=== PATIENT | female | born 1960 | race Caucasian/White ===

== ENCOUNTER 2020-02-09 10:22 | Outpatient (CLI) | payer BC, SELFPAY ==
--- NOTE | ~2020-02-09 | CT_ITS ---
EXAMINATION: CT abdomen pelvis w con DATE: 02/09/2020 11:04 INDICATION: Left lower quadrant abdominal pain TECHNIQUE: Computed tomography (CT) of the abdomen and pelvis was performed with 100 cc Omnipaque 350 intravenous contrast. Automated exposure control and iterative reconstruction technique were employe d. Exam dose: 253.20 mGy-cm total exam DLP. COMPARISON: None. FINDINGS: There is mild discoid atelectasis or scarring at the posteromedial left lung base, left low er lobe. There is minimal bilateral lower lobe dependent atelectasis. Normal heart size. No pericardial or pleural effusion. Hepatic steatosis. The liver, gallbladder, bile ducts, spleen, pancreas, pancreatic duct, and adrenal glands and kidneys are otherwise unremarkable. A pinpoint nonobstructing mid left renal calculus is suggested. No ureteral or urinary bladder calculus or hydroureteronephrosis. There is atherosclerotic calcification of the abdominal aorta and iliac arteries; no evidence of aneu rysm. No intraperitoneal or retroperitoneal or pelvic mass lesion or adenopathy or ascites. Normal appendix. There is diverticulosis of the colon. There is thickening of the wall of the proximal sigmoid colon w ith pericolic stranding, likely secondary to diverticulitis. No drainable abscess collection is ident ified. No free intraperitoneal air is noted. No bowel obstruction, bowel wall thickening, pneumatosis or intraperitoneal free air is noted otherwi se. Status post hysterectomy. Status post posterior and interbody spinal fusion at L5-S1. IMPRESSION: Sigmoid diverticulitis; no drainable abscess identified Diverticulosis of the colon Pinpoint nonobstructing left renal calculus Hepatic steatosis Dr. Mendez telephoned the report on 02/09/2020 at 1118 hours to Bessie Carreno. Reviewed, dictated and finalized at [facility]. Reviewed, dictated and finalized at [facility]. IMPRESSION: Sigmoid diverticulitis; no drainable abscess identified Diverticulosis of the colon Pinpoint nonobstructing left renal calculus Hepatic steatosis Dr. Mendez telephoned the report on 02/09/2020 at 1118 hours to Bessie Ruiz
[2020-02-09 10:53] LABS: Estimated Glomerular Filt Rate > 60
== END 2020-02-09 10:23 | disposition home or self-care (01) ==
LOC: ANHIMG 10:26
PROVIDERS: PCP Internal Medicine; Visit Provider Nurse Practitioner
DX: R10.32 Left lower quadrant pain (principal); K57.92 Diverticulitis of intestine, part unspecified, without perforation or abscess without bleeding; N20.0 Calculus of kidney; K76.0 Fatty (change of) liver, not elsewhere classified
CPT/HCPCS: 36415; 74177; Q9967

== ENCOUNTER 2020-05-02 08:13 | Outpatient (CLI) | payer BC, SELFPAY ==
--- NOTE | 2020-05-12 15:17 | WPDPFTINT ---
PFT Interpretation PFT Interpretation: This PFT met all criteria for ATS standards and reproducibility FEV/FVC post bronchodilator 80% FEV1 138% FVC 128% TLC 122% RV 109% RV/TLC 33% DLCO 84% when adjusted for alveolar volume but not adjusted for hemoglobin Flow volume loops were normal Impression: Other than borderline hyperinflation this PFT is normal. Clinical correlation is advised.
== END 2020-05-02 08:14 | disposition home or self-care (01) ==
PROVIDERS: PCP Internal Medicine; Visit Provider Clinical Nurse Specialist
DX: Z83.6 Family history of other diseases of the respiratory system (principal)
CPT/HCPCS: 94060; 94726; 94729

== ENCOUNTER → 2021-01-24 10:37 | Outpatient (CLI) | payer BC, SELFPAY ==
--- NOTE | ~2021-01-24 | XR_ITS ---
EXAMINATION: XR foot LT min 3V EXAM DATE: 01/24/2021 11:17 INDICATION: Initial encounter following injury, with pain of the left foot, jammed into stair 2-3 wee ks ago. Persistent pain and swelling dorsally between 1st and 2nd metatarsal bones. TECHNIQUE: Left foot dorsoplantar, lateral and oblique projections obtained and reviewed. There is n o prior study for comparison. FINDINGS: Left metatarsal bones unremarkable. There is minimal 1st metatarsophalangeal joint primar y osteoarthritis. There are no acute fractures or dislocations identified. There is no subcutaneous gas. The soft tissue is unremarkable. There are no radiopaque foreign bodies. IMPRESSION: No acute osseous findings. Reviewed, dictated and finalized at location [facility]. IMPRESSION: No acute osseous findings.
== END ==
PROVIDERS: PCP Internal Medicine; Visit Provider Nurse Practitioner
DX: M19.072 Primary osteoarthritis, left ankle and foot (principal)
CPT/HCPCS: 73630

== ENCOUNTER 2022-05-20 01:26 | Day surgery (SDC) | payer BC, SELFPAY ==
[2022-05-19 09:21] VITALS: BMI 23.9
--- NOTE | 2022-05-19 09:27 | PC.NURSE ---
Report to the Outpatient Waiting Room, entrance under the green pavilion located off [facility], at time 0830 on date 05/20/22. Planned Procedure Time: 1030. Time changes happen often and if your time is changed the preop area will call you the afternoon before. - You and your visitor will be asked to self-screen and do not enter if you have any COVID symptoms. - Only one visitor is requested with a max of two and NO children visitors are allowed at this time. - The patient visitor may be requested to leave or wait in car when not with patient due to distancing restrictions. - A mask is optional within the hospital. Patients may have clear liquids (water, carbonated beverages, clear teas, apple juice) until 3 hours prior to surgery with a maximum of 20 ounces. - No food from midnight until time of surgery Take the following medications with a SIP of water the morning of surgery: LEVOTHYROXINE, VALACYCLOVIR & MACROBID IF NEEDED Medications to discontinue per physician: VITAMINS/SUPPLEMENTS Date to take last dose: NO MORE UNTIL AFTER SURGERY Please no make-up, nail danish, hairspray, perfume, deodorant, or body powder the day of surgery. No jewelry (including any body piercings) or valuables the day of surgery, leave them at home. Please take a shower or bath the night before, or the morning of, surgery with an antibacterial soap. Wear comfortable, loose fitting clothing. - Jewelry must be removed prior to entering the operating room. Rings and piercings that are not removed may be cut off. - The hospital will not accept responsibility for valuables. - Please leave all valuables, including medications, at home the day of surgery. If you are going home after surgery, a licensed catshovel driver must drive you home. - NO public transportation without another adult if you receive anesthesia. - We recommend that an adult stay with you for 24 hours following discharge. - We also recommend that you do not drive, make important decision, drink alcoholic beverages, or take any drugs that were not prescribed by your health care provider for at least 24 hours after your discharge time. Follow any additional instructions given to you from your surgeon. If you or anyone in your household have experienced Covid symptoms in the past week, please notify your surgeon or the nurse liaison at the phone number below for possible testing. Telephone instructions given to PT Ruthy DSOUZA and asked if any additional questions and then verbalized understanding. Patient advised to call surgeon office or pre surgery nurse liaison [phone] if any additional questions.
--- NOTE | 2022-05-19 14:50 | WPDANESEPPF ---
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 Patient Data Age: 61 Gender: F Height: 1.6 m Weight: 61.24 kg Allergies Allergy/AdvReac Type Severity Reaction Status Date / Time hydrocodone [From Vicodin] AdvReac Mild Nausea and Verified 05/20/22 07:56 Vomiting Home Medications Medication Instructions Recorded Confirmed Type blood-glucose meter,continuous #1 ea 11/04/20 05/20/22 Rx (Dexcom G6 [employer] misc) cetirizine 10 mg tablet (Zyrtec) 10 mg PO DAILY #90 tabs 07/14/21 05/20/22 Rx omega-3 fatty acids 1,000 mg 2,000 mg PO DAILY 08/06/21 05/20/22 History capsule fluticasone propionate 50 1 spray intranasal Q12H #54.6 mL 10/01/21 05/20/22 Rx mcg/actuation nasal spray,suspension atorvastatin 20 mg tablet 20 mg PO DAILY #90 tabs 10/22/21 05/20/22 Rx estradiol 0.025 mg/24 hr weekly 1 patch transdermal WEEKLY #12 ea 11/12/21 05/20/22 Rx transdermal patch nitrofurantoin 100 mg PO ONCE PRN postcoidal UTI 11/13/21 05/20/22 History monohydrate/macrocrystals 100 mg prophylaxis capsule (Macrobid) blood-glucose sensor (Dexcom G6 #9 ea 12/16/21 05/20/22 Rx Sensor device) blood-glucose transmitter (Dexcom #3 ea 02/19/22 05/20/22 Rx G6 Transmitter device) losartan 100 mg tablet 100 mg PO DAILY #90 tabs 03/09/22 05/20/22 Rx valacyclovir 1 gram tablet See Rx Instructions .Route 03/09/22 05/20/22 Rx .COMPLEX #90 tabs doxepin 10 mg capsule See Rx Instructions .Route 03/10/22 05/20/22 Rx .COMPLEX #180 caps semaglutide 1 mg/dose (4 mg/3 mL) 1 mg (0.75 mL) subcut WEEKLY 90 05/11/22 05/20/22 Rx subcutaneous pen injector (Ozempic) days #9 mL levothyroxine 50 mcg tablet See Rx Instructions .Route 05/19/22 05/20/22 Rx .COMPLEX #90 tabs Patient hx anesthesia problems: none Family hx anesthesia problems: none Results Review: All pre-operative results and documents have been reviewed as part of the pre-operative evaluation. [facility] Past Medical History Medical History Acquired hypothyroidism Chicken pox Diverticulitis large intestine Family history of pulmonary fibrosis Herniated disc Hypertension Insomnia LBBB (left bundle branch block) Lumbar radiculitis Mixed hyperlipidemia Postcoital UTI PVC (premature ventricular contraction) history Type 2 diabetes mellitus without complication, without long-term current use of insulin Surgical History Surgical History H/O: hysterectomy 2007 Previous back surgery L5-S1 infusion with cage and screws 2009 Family History Family History Mother Hypertension Cerebrovascular accident Family history of hypothyroidism Family history of diabetes mellitus in first degree relative Myocardial infarction Sibling Family history of hypothyroidism Father Malignant neoplasm of prostate Heart problem Son Multiple sclerosis Graves' disease Social History Social History Smoking status: Never smoker Second hand tobacco smoke exposure: No Alcohol intake: current Drinks per week: 4 Alcohol use details: occasional Substance use: never Substance use type: does not use Living arrangements: with family Spiritual care concerns: No Anes - Eval Final PreProcedure Day of Procedure 05/19/22 14:50 Patient weight: normal Heart: regular rate and rhythm Lungs: clear to auscultation and normal air movement Airway: Mallampati scale class II Neurological: alert and oriented Last oral intake: >/= 8 hours ASA classification: III Emergent: no Anesthetic plan: procee
--- NOTE | 2022-05-20 07:18 | WPDHPUPDATE1 ---
History and Physical Update Update Date/Time: 05/20/22 07:18 History and Physical has been reviewed, including an updated exam of the patient. There are NO changes in the patient's condition. Risks, benefits, and alternatives have been discussed and questions answered. Patient agrees to proceed with procedure.
[2022-05-20 07:45] VITALS: BP 112/69; PULSE 82; RESP 16; TEMP 36.5; O2SAT 98
[2022-05-20] MEDS: LACTATED RINGERS 1,000 ML 30 ML IV CONT ×2 (08:51→12:33)
[2022-05-20 09:12] LABS: Anion Gap 5 mmol/L (8-16); Blood Urea Nitrogen 16 mg/dL (7-17); Calcium 9.4 mg/dL (8.4-10.2); Carbon Dioxide 30 mmol/L (22-30); Chloride 102 mmol/L (98-107); Estimated CRCL calculation 61 ml/min; Estimated Glomerular Filt Rate > 60; Glucose 112 mg/dL (65-110); Potassium 3.8 mmol/L (3.4-5.0); Sodium 137 mmol/L (137-145)
[2022-05-20] MEDS: LIDO 2%/EPINEPHRINE 1:100,000 50 ML VIAL INFILTRATE (12:13)
[2022-05-20 12:33] VITALS: BP 113/74; PULSE 85; RESP 12; O2SAT 100
[2022-05-20 13:00] VITALS: BP 135/89; PULSE 72
[2022-05-20 13:30] VITALS: BP 138/79; PULSE 67
--- NOTE | 2022-05-20 16:27 | W.PM.PROC2 ---
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 She was taken to the operating room where she was placed supine on the operating table. The patient was given IV sedation. The left wrist was marked for the incision. The site was infiltrated with 2% lidocaine with epinephrine. The extremity was exsanguinated and the tourniquet inflated to 250 mmHg. The incision was made through the skin. Blunt dissection through the subcutaneous tissue revealed the 1st dorsal compartment. Scissors were used to incise along the volar aspect of that retinaculum. The extensor tendons were identified. The extensor pollicis brevis was found to be partially enclosed and a separate compartment. This was released more distally completely releasing constriction of that. . No large branches of the superficial branch of the median nerve were identified. The wound was closed with intradermal 4-0 Monocryl sutures. The tourniquet was released. The usual bandage was applied. The patient was discharged from the operating room in stable condition. She is being discharged home a prescription for Percocet 5/325 5. Estimated Blood Loss -1.0 Drains No Packing No Pathology None sent Complications No immediate complications Condition Stable Disposition Same day
== END 2022-05-20 13:42 | disposition home or self-care (01) ==
PROVIDERS: Anesthesiology; PCP Internal Medicine; Visit Provider Plastic Surgery
PROC: (CPT 25000; principal; 2022-05-20 10:30)
DX: M65.4 Radial styloid tenosynovitis [de Quervain] (principal); E11.9 Type 2 diabetes mellitus without complications; I10 Essential (primary) hypertension; E03.9 Hypothyroidism, unspecified; I44.7 Left bundle-branch block, unspecified; E78.2 Mixed hyperlipidemia; I49.3 Ventricular premature depolarization; Z79.899 Other long term (current) drug therapy; Z98.1 Arthrodesis status
CPT/HCPCS: 25000; 36415; 80048; A9270; J1100; J2250; J2405; J2704; J3010; J7120

== ENCOUNTER → 2022-11-19 11:35 | Outpatient (CLI) | payer BC, SELFPAY ==
--- NOTE | ~2022-11-19 | XR_ITS ---
XR_CERV2-3V_CR 11/19/2022 11:49 Indication: Cervical radiculopathy Procedure: 4 views cervical spine Comparison: No prior studies for comparison. Findings: There is disc narrowing at C5-6 and C6-7 with prominent marginal osteophytes. No prevertebr al soft tissue swelling. No acute fracture or traumatic malalignment. Odontoid process is normal. The re is moderate multilevel uncinate and facet hypertrophy. Lung apices are normal. Odontoid process is normal. Impression: 1: Moderate-severe cervical spondylosis. Reviewed, dictated and finalized at location [facility]. Impression: 1: Moderate-severe cervical spondylosis.
== END ==
PROVIDERS: PCP Nurse Practitioner; Visit Provider Nurse Practitioner
DX: M47.22 Other spondylosis with radiculopathy, cervical region (principal)
CPT/HCPCS: 72040

== ENCOUNTER → 2022-11-25 09:46 | Outpatient (CLI) | payer BC, SELFPAY ==
--- NOTE | ~2022-11-25 | MR_ITS ---
MRI of the cervical spine Clinical History: Cervical radiculopathy Technique: Axial T2-weighted and gradient images, and sagittal T1-weighted, T2-weighted, and STIR carlos ges were acquired. Findings: There is no fracture or subluxation of the cervical spine. Vertebral bodies maintain normal height and alignment. No suspicious bone marrow signal abnormality seen. At C2-C3, there is no disc bulge or herniation. No spinal canal stenosis, cord compression, or neural foraminal narrowing. At C3-C4, there is disc osteophyte complex, most pronounced the left paracentral region. No ilana spi nal canal stenosis or cord compression. Probable minimal left neural foraminal narrowing. Right neura l foramen preserved. At C4-C5, there is no significant disc bulge or herniation. No spinal canal stenosis, cord compressio n, or neural foraminal narrowing. At C5-C6, there is moderate degenerative disc narrowing with small disc osteophyte complex. There is mild canal stenosis without ilana cord compression. There is right neural foraminal narrowing. Left n eural foramen preserved. At C6-C7, there is moderate degenerative distended with mild disc osteophyte complex. No ilana spinal canal stenosis or cord compression. Bilateral neural foramina are probably preserved. No abnormal signal seen in the spinal cord. Paravertebral soft tissues are unremarkable. Impression: Mild degenerative spondylosis, as above. Reviewed, dictated and finalized at [facility]. Impression: Mild degenerative spondylosis, as above.
== END ==
PROVIDERS: PCP Nurse Practitioner; Visit Provider Nurse Practitioner
DX: M47.22 Other spondylosis with radiculopathy, cervical region (principal)
CPT/HCPCS: 72141

== ENCOUNTER 2022-12-14 10:45 | Outpatient (CLI) | payer BC, SELFPAY ==
[2022-12-16 20:18] LABS: Amphetamines NEGATIVE ng/mL (<500); Barbiturates NEGATIVE ng/mL (<300); Benzodiazepines POSITIVE ng/mL (<100); Cocaine Metabolite NEGATIVE ng/mL (<150); Marijuana Metabolite NEGATIVE ng/mL (<20); Methadone Metabolite NEGATIVE ng/mL (<100); Opiates NEGATIVE ng/mL (<100); Oxidant NEGATIVE mcg/mL (<200); pH 7.1 (4.5-9.0)
== END 2022-12-14 10:46 | disposition home or self-care (01) ==
LOC: ANHGOSHLAB 10:46
PROVIDERS: PCP Nurse Practitioner; Visit Provider Anesthesiology Pain Medicine
DX: M75.00 Adhesive capsulitis of unspecified shoulder (principal); M54.12 Radiculopathy, cervical region
CPT/HCPCS: 80307

== ENCOUNTER 2023-01-08 09:37 | Outpatient (CLI) | payer BC, SELFPAY ==
--- NOTE | ~2023-01-08 | MR_ITS ---
EXAMINATION: MR shoulder RT w con DATE: 01/08/2023 11:23 INDICATION: Right shoulder pain. Impingement. TECHNIQUE: Magnetic resonance imaging (MRI) of the right shoulder was performed following intra-anna cular gadolinium contrast injection and without intravenous contrast. Details of the glenohumeral aaron nt injection have been dictated separately. Sequences included axial T2-weighted FS FSE, axial T1-we ighted FS FSE, coronal oblique T1-weighted FS FSE, coronal oblique T2-weighted FSE, sagittal T2-weigh amy FS FSE, sagittal T1-weighted FSE, and ABER (abduction external rotation) T1-weighted FS FSE. COMPARISON: None. FINDINGS: Coracoacromial arch: The acromion undersurface is minimally curved in morphology (type I-II). The coracoacromial ligament is normal. Moderate acromioclavicular osteoarthritis with small inferiorly directed osteophytes which abuts the cephalad margin of the supraspinatus muscle and tendon with effacement of the intervening fat plane. Rotator cuff: Prominent thickening and mild increased signal of the supraspinatus and infraspinatus tendons consist ent with moderate tendinopathy. Very small articular sided tear of the distal infraspinatus muscle me asuring approximately 3 to 4 mm from the middle facet footplate. Contrast signal extends through appr oximately two thirds of the tendon thickness however a discrete measurable contrast-filled tear defec t is not appreciated. There is an additional 2 x 2 mm fluid signal intensity noncontrast enhanced int rasubstance tear at the superior facet footplate of the posterior supraspinatus tendon. Mild subscapu bianca tendinopathy without tear. The teres minor tendon is normal. Normal rotator cuff muscle bulk an d signal. Biceps tendon, glenoid labrum and glenohumeral cartilage: Mild tendinopathy without tear of the intra-articular long head biceps tendon. Small marginal osteoph ytes extend into the base of the posterior and anteroinferior labrum. No labral tear. Mild partial-th ickness cartilage loss with smooth chondral surface along the cephalad aspect of the humeral head. Bones and other: Bone alignment is normal. No fracture or pathologic marrow replacing process. Replacement of the norm al T1 hyperintense fat signal at the rotator cuff interval by thick and soft tissue and mild thickeni ng of the capsule at the axillary recess, both findings which can be seen in the setting of adhesive capsulitis which is a clinical diagnosis. Small amount of fluid without contrast enhancement in the s ubacromial/subdeltoid bursa consistent with mild bursitis. IMPRESSION: 1. Moderate rotator cuff tendinopathy with very small articular sided tear of the distal infraspinatu s tendon and very small intrasubstance tear at the footplate of the supraspinatus tendon. 2. Thickening of the soft tissues at the rotator cuff interval and thickening of the capsule at the a xillary recess, both findings which can be seen in the setting of adhesive capsulitis. 3. Mild glenohumeral and moderate acromioclavicular osteoarthritis. 4. Mild subacromial/subdeltoid bursitis. Reviewed, dictated and finalized at location A. IMPRESSION: 1. Moderate rotator cuff tendinopathy with very small articular sided tear of t he distal infraspinatus tendon and very small intrasubstance tear at the footpl ate of the supraspinatus tendon. 2. Thickening of the soft tissues at the rotator cuff interval and thickening o f the capsule at the axillary recess, both findings which can be seen in the se tting of adhesive capsulitis. 3. Mild glenohumeral and moderate acromioclavicular osteoarthritis. 4. Mild subacromial/subdeltoid bursitis.
--- NOTE | ~2023-01-08 | XR_ITS ---
EXAMINATION: XR fl inj shoulder RT - MR/CT DATE: 01/08/2023 10:56 INDICATION: Right shoulder pain and impingement. TECHNIQUE: A time-out was performed to verify the patient's name, date of , and procedure to b e performed. The procedure including the risks, benefits, and alternatives was discussed with the pat ient. Risks discussed included bleeding and infection. The patient understood the risks and agreed to proceed. The skin overlying the right glenohumeral joint was prepped and draped in usual sterile fa shion. Anesthetic was administered with 1% lidocaine subcutaneously. A 22 G needle was advanced und er fluoroscopic guidance into the joint. Injection of 1 mL of Omnipaque 240 confirmed intra-articula r position of the needle. Subsequently, injectate consisting of 12 mL of 2:1:1 mixture of sterile sa line:Omnipaque 240:1% lidocaine mixed 200:1 with 529 mg/mL Multihance gadolinium contrast was injecte d with intra-articular administration confirmed with intermittent fluoroscopy. The needle was removed and the entry site was cleaned and dressed. There were no immediate complications. Fluoroscopy expo sure time was 2.5 minutes. The total number of images was 134. FINDINGS: Real-time fluoroscopy demonstrates the needle in the right glenohumeral joint. Very small r otator cuff tear with threadlike extra articular extension of contrast into what is likely distal inf raspinatus tendon. IMPRESSION: 1. Successful right glenohumeral joint injection of a dilute gadolinium contrast mixture for subseque nt MRI arthrogram which will be dictated separately. 2. Likely very small articular sided tear of the distal infraspinatus tendon. See MR arthrogram repor t for further detail. Reviewed, dictated and finalized at location [facility]. IMPRESSION: 1. Successful right glenohumeral joint injection of a dilute gadolinium contras t mixture for subsequent MRI arthrogram which will be dictated separately. 2. Likely very small articular sided tear of the distal infraspinatus tendon. S ee MR arthrogram report for further detail.
== END 2023-01-08 09:38 | disposition home or self-care (01) ==
LOC: ANHIMG 09:38
PROVIDERS: PCP Nurse Practitioner; Visit Provider Anesthesiology Pain Medicine
DX: M19.011 Primary osteoarthritis, right shoulder (principal); M75.51 Bursitis of right shoulder
CPT/HCPCS: 23350; 73222; 77002; A9577; Q9966

== ENCOUNTER 2023-02-03 08:47 | Outpatient (CLI) | payer BC, SELFPAY ==
[2023-02-03 10:11] LABS: Kit Draw Collected
== END 2023-02-03 08:48 | disposition home or self-care (01) ==
LOC: ANHGOSHLAB 08:49
PROVIDERS: Visit Provider Nurse Practitioner
DX: E78.5 Hyperlipidemia, unspecified (principal); E03.9 Hypothyroidism, unspecified; E11.9 Type 2 diabetes mellitus without complications; Q38.3 Other congenital malformations of tongue; E55.9 Vitamin D deficiency, unspecified
CPT/HCPCS: 36415

== ENCOUNTER → 2023-04-13 12:08 | Outpatient (CLI) | payer BC, SELFPAY ==
--- NOTE | ~2023-04-13 | MM_ITS ---
EXAMINATION: MM screening ivana BI w anitha HISTORY: Screening TECHNIQUE: Craniocaudal and mediolateral oblique 3-D tomosynthesis images were obtained and synthetic 2-D images were generated. CAD analysis was submitted and interpreted. COMPARISON: 03/08/2028 BREAST PARENCHYMAL COMPOSITION: The breasts are heterogeneously dense, which may obscure small masses . FINDINGS: There is no evidence of suspicious mass, calcification, or architectural distortion to sugg est malignancy in either breast. There has been no suspicious interval change. IMPRESSION: 1. No mammographic evidence of malignancy. 2. Recommend routine screening mammography in one year. BI-RADS Category 1: Negative Reviewed, dictated and finalized at location A.
== END ==
PROVIDERS: PCP Nurse Practitioner; Visit Provider Nurse Practitioner
DX: Z12.31 Encounter for screening mammogram for malignant neoplasm of breast (principal)
CPT/HCPCS: 77063; 77067

== ENCOUNTER 2023-11-21 21:59 | Emergency (ER) | payer BC, SELFPAY ==
--- NOTE | ~2023-11-21 | CT_ITS ---
EXAMINATION: CT cervical spine wo con DATE: 11/22/2023 00:19 INDICATION: Neck pain. Neck injury. TECHNIQUE: Computed tomography (CT) of the cervical spine was performed without intravenous contrast. Automated exposure control and iterative reconstruction technique were employed. The dose-length pro duct was 166.84 mGy-cm. COMPARISON: None FINDINGS: There is 2 mm retrolisthesis of C6 on C7. There is mild kyphosis of cervical spine. Vertebr al body heights are normal. There is severely decreased disc height at C5-C6 and C6-C7. The following disc levels are specifically discussed: C2-C3: There is no uncovertebral joint osteoarthritis. There is severe right facet joint osteoarthrit is. There is ankylosis of left facet joint with severe hypertrophy. There is mild left neural foramin al stenosis. There is no central canal stenosis. C3-C4: There is mild bilateral uncovertebral joint osteoarthritis. There is severe bilateral facet rebecca int osteoarthritis. There is mild bilateral neural foraminal stenosis. There is no central canal sten osis. C4-C5: There is no uncovertebral joint osteoarthritis. There is moderate bilateral facet joint osteoa rthritis. There is no neural foraminal stenosis. There is no central canal stenosis. C5-C6: There is severe right and mild left uncovertebral joint osteoarthritis. There is mild bilatera l facet joint osteoarthritis. There is mild bilateral neural foraminal stenosis. There is mild centra l canal stenosis. C6-C7: There is severe bilateral uncovertebral joint osteoarthritis. There is severe bilateral facet joint osteoarthritis. There is mild bilateral neural foraminal stenosis. There is mild central canal stenosis. C7-T1: There is no uncovertebral joint osteoarthritis. There is moderate right and severe left facet joint osteoarthritis. There is mild left neural foraminal stenosis. There is no central canal stenosi s. IMPRESSION: 1. No fracture. 2. Severe cervical spondylosis. Reviewed, dictated and finalized at location E.
--- NOTE | ~2023-11-21 | CT_ITS ---
EXAMINATION: CT brain wo con DATE: 11/22/2023 00:18 INDICATION: Head injury. TECHNIQUE: Computed tomography (CT) of the head was performed without intravenous contrast. The mA wa s adjusted according to patient size. Iterative reconstruction technique was employed. The dose-lengt h product was 605.33 mGy-cm. COMPARISON: None FINDINGS: There is no intracranial hemorrhage, acute infarction, or abnormal intracranial mass lesion . The ventricles are normal in size. There is mild mucosal thickening in the paranasal sinuses. The m astoid air cells are normal. The orbits are normal. There is a partially calcified 1.9 cm mass in the scalp on the left, likely an old hematoma. There is soft tissue swelling of the scalp on the left. IMPRESSION: 1. Normal brain. Reviewed, dictated and finalized at location E. IMPRESSION: 1. Normal brain.
[2023-11-21 22:08] VITALS: BP 165/90; PULSE 104; RESP 20; TEMP 37.3; O2SAT 100
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
[2023-11-22] MEDS: TETANUS,DIPHTHERIA,AC PERTUSSIS ADULT (0.5 ML) BOOSTRIX IM (01:09)
[2023-11-22 01:28] VITALS: BP 160/73; PULSE 62; RESP 18; O2SAT 100
== END 2023-11-22 02:28 | disposition home or self-care (01) ==
PROVIDERS: Emergency Provider Physician Assistant; PCP Internal Medicine
DX: S09.90XA Unspecified injury of head, initial encounter (principal); S10.93XA Contusion of unspecified part of neck, initial encounter; E03.9 Hypothyroidism, unspecified; I10 Essential (primary) hypertension; E78.5 Hyperlipidemia, unspecified; E11.9 Type 2 diabetes mellitus without complications; Z23 Encounter for immunization; W20.8XXA Other cause of strike by thrown, projected or falling object, initial encounter; X37.1XXA Tornado, initial encounter
CPT/HCPCS: 70450; 72125; 90471; 90715; 99284

== ENCOUNTER 2024-01-27 14:08 | Outpatient (CLI) | payer BC, SELFPAY ==
--- NOTE | ~2024-01-27 | XR_ITS ---
Clinical Indication: Cough PA and lateral views of the chest: Comparison: 09/28/2011 Findings: The lungs are clear, without evidence of focal consolidation or pleural effusion. Cardiome diastinal silhouette is within normal limits. Bones and soft tissues are unremarkable. Impression: Normal chest. Reviewed, dictated and finalized at [facility]. Impression: Normal chest.
== END 2024-01-27 14:09 ==
PROVIDERS: PCP Nurse Practitioner; Visit Provider Nurse Practitioner
DX: R05.9 Cough, unspecified (principal)
CPT/HCPCS: 71046

== ENCOUNTER 2024-05-02 14:22 | Outpatient (CLI) | payer BC, SELFPAY ==
--- NOTE | ~2024-05-02 | XR_ITS ---
XR shoulder LT min 2V Ordering provider: Horace Marshall MD History: . M25.512 - Pain in left shoulder . Comparison: None. FINDINGS: BONES: No acute fracture or dislocation. JOINT SPACES: The acromioclavicular joint shows mild osteoarthritic changes. . The glenohumeral joint is normal. SOFT TISSUES: Normal. IMPRESSION: No acute osseous abnormality left shoulder. Reviewed, dictated and finalized at location A. ERER ASSEMBLER
--- NOTE | ~2024-05-02 | XR_ITS ---
XR sacroiliac joints min 3V Ordering provider: Horace Marshall MD History: . M46.1 - Sacroiliitis, not elsewhere classified . Comparison: None. FINDINGS: BONES: Postoperative changes at the level of L5-S1. No acute fracture or dislocation. JOINTS: The bilateral sacroiliac joint spaces appear well maintained. No bony fusion of the sacroilia c joints or bony erosions. SOFT TISSUES: Unremarkable. IMPRESSION: NO ACUTE OSSEOUS ABNORMALITY. NORMAL SACROILIAC JOINTS. Reviewed, dictated and finalized at location A. OPONE MILL WORKER
--- NOTE | ~2024-05-02 | XR_ITS ---
3 VIEWS LUMBAR SPINE Ordering provider: Horace Marshall MD History: . M96.1 - Postlaminectomy syndrome, not elsewhere classified . Comparison: None. FINDINGS: VERTEBRAL BODIES:. Postoperative changes at the level of L5-S1. No visible fracture or subluxation. DISK SPACES: Disc spacer at the level of L5-S1. Narrowing of the disc L3-L4 and L4-L5. Multilevel facet joint disease. SOFT TISSUES: Atherosclerotic changes of the aorta. IMPRESSION: No acute osseous abnormality lumbar spine. Postoperative changes at the level of L5-S1. Reviewed, dictated and finalized at location A. STITCHING MACHINE OPERATOR
--- NOTE | ~2024-05-02 | XR_ITS ---
XR hip BI wo pelvis Ordering provider: Horace Marshall MD History: . M25.559 - Pain in unspecified hip . Comparison: None. FINDINGS: BONES: No acute fracture or dislocation. HIP JOINT SPACES: Normal. PUBIC SYMPHYSIS: Normal. SOFT TISSUES: Normal. IMPRESSION: No acute osseous abnormality of the bilateral hips and pelvis. Reviewed, dictated and finalized at location A. PAPER TESTER
== END 2024-05-02 14:23 | disposition home or self-care (01) ==
PROVIDERS: PCP Internal Medicine; Visit Provider Anesthesiology Pain Medicine
DX: M25.512 Pain in left shoulder (principal); M46.1 Sacroiliitis, not elsewhere classified; M96.1 Postlaminectomy syndrome, not elsewhere classified; M25.559 Pain in unspecified hip
CPT/HCPCS: 72114; 72202; 73030; 73521

== ENCOUNTER 2024-05-19 08:51 | Outpatient (CLI) | payer BC, SELFPAY ==
--- NOTE | ~2024-05-19 | MR_ITS ---
MRI of the lumbar spine Clinical History: Back pain Technique: Axial T2-weighted images, and sagittal T1-weighted, T2-weighted, and T2 fat-sat images wer e acquired. Findings: No acute fracture or subluxation seen lumbar spine. There is posterior and interbody fusion from L5 to S1, associated L5 laminectomy defects. There are bilateral rods and transpedicular screws , with interbody fusion device. No suspicious bone marrow signal abnormality seen. At L1-L2, L2-L3, there is no significant disc bulge or herniation. There is moderate to advanced face t arthropathies levels. No spinal canal stenosis or neural foraminal narrowing at these levels. At L3-L4, there is minimal disc bulge with advanced facet arthropathy. No central canal stenosis or n eural foraminal narrowing. At L4-L5, there is disc bulge with severe facet arthropathy. No ilana central canal stenosis. Neural foramina are preserved. At L5-S1, there is no spinal canal stenosis. Right neural foramen mildly narrowed. Paravertebral soft tissues are unremarkable. Impression: Postoperative changes at the L5-S1 level, as detailed above. Minimal degenerative change, as above. Reviewed, dictated and finalized at [facility]. SCRAPER Impression: Postoperative changes at the L5-S1 level, as detailed above. Minimal degenerative change, as above.
== END 2024-05-19 08:52 | disposition home or self-care (01) ==
LOC: GOSHIMG 08:51
PROVIDERS: PCP Anesthesiology Pain Medicine; Visit Provider Anesthesiology Pain Medicine
DX: M47.896 Other spondylosis, lumbar region (principal); Z98.890 Other specified postprocedural states
CPT/HCPCS: 72148

== ENCOUNTER 2024-06-07 08:56 | Outpatient (CLI) | payer BC, SELFPAY ==
--- NOTE | ~2024-06-07 | MR_ITS ---
MRI of the left hip Clinical history: Pain Technique: Coronal T1-weighted, T2-weighted, and proton-density fat-sat images, and axial T1-weighted and proton-density fat-sat images were acquired through the pelvis. Coronal T2-weighted images and c oronal, axial, and sagittal proton-density fat-sat images were acquired through the left hip. Findings: There is no fracture or avascular necrosis of either hip. Bone marrow signals the proximal femora and visualized pelvic bones are unremarkable. Bilateral hip joint spaces are preserved. Articu lar cartilage is relatively well preserved. No joint effusion. No left acetabular labral tear identif ied. Visual is musculature about the pelvis and left hip is unremarkable. No muscle atrophy or edema. Visu alized tendons are intact. No bursitis. No soft tissue mass or fluid collection. IMPRESSION: No significant abnormality. Reviewed, dictated and finalized at [facility]. STILE COLLECTOR IMPRESSION: No significant abnormality.
== END 2024-06-07 08:57 | disposition home or self-care (01) ==
LOC: GOSHIMG 08:57
PROVIDERS: PCP Nurse Practitioner; Visit Provider Anesthesiology Pain Medicine
DX: M25.552 Pain in left hip (principal)
CPT/HCPCS: 73721

== ENCOUNTER 2024-07-05 09:58 | Outpatient (CLI) | payer BC, SELFPAY ==
--- NOTE | 2024-07-05 11:00 | NEURO_ITS ---
Impression: # Complains of numbness of feet. History of lower back surgery. ? # Normal motor/sensory Nerve Conduction Study. ? # Normal and symmetrical F-waves. ? # Normal needle/EMG exam. ? # Clinical correlation recommended; symptomatology could be related to higher involvement. Nerve Conduction Studies Anti Sensory Summary Table ?Stim Site NR Peak (ms) P-T Amp (?V) Site1 Site2 Delta-P (ms) Dist (cm) Inocente (m/s) Left Sup Fibular Anti Sensory (Ant Lat Mall) 14 cm ? 3.2 5.1 14 cm Ant Lat Mall 3.2 16.0 50 Right Sup Fibular Anti Sensory (Ant Lat Mall) 14 cm ? 3.1 13.1 14 cm Ant Lat Mall 3.1 16.0 52 Left Sural Anti Sensory (Lat Mall) Calf ? 3.5 8.7 Calf Lat Mall 3.5 16.0 46 Right Sural Anti Sensory (Lat Mall) Calf ? 3.6 9.9 Calf Lat Mall 3.6 16.0 44 Motor Summary Table ?Stim Site NR Onset (ms) O-P Amp (mV) Site1 Site2 Delta-0 (ms) Dist (cm) Inocente (m/s) Left Peroneal Motor (Vastus Med) Ankle ? 4.6 1.9 Popit Ankle 7.6 39.0 51 Popit ? 12.2 1.4 Right Peroneal Motor (Vastus Med) Ankle ? 4.6 2.3 Popit Ankle 8.1 38.0 47 Popit ? 12.7 1.6 Left Tibial Motor (Abd Farris Brev) Ankle ? 4.7 6.4 Knee Ankle 8.5 40.0 47 Knee ? 13.2 3.7 Right Tibial Motor (Abd Farris Brev) Ankle ? 4.7 7.7 Knee Ankle 8.4 39.0 46 Knee ? 13.1 5.7 F Wave Studies ?NR F-Lat (ms) L-R F-Lat (ms) Left Peroneal (Mrkrs) (EDB) ? 53.72 1.05 Right Peroneal (Mrkrs) (EDB) ? 54.77 1.05 Left Tibial (Mrkrs) (Abd Hallucis) ? 54.50 0.19 Right Tibial (Mrkrs) (Abd Hallucis) ? 54.69 0.19 EMG ?Side Muscle Nerve Root Ins Act Fibs Amp Dur Recrt Comment Right AntTibialis Dp Br Fibular L4-5 Nml Nml Nml Nml Nml Right Gastroc Tibial S1-2 Nml Nml Nml Nml Nml Right Fibularis Long Sup Br Fibular L5-S1 Nml Nml Nml Nml Nml Right Flex Dig Long Tibial L5-S2 Nml Nml Nml Nml Nml Right Ext Dig Brev Dp Br Fibular L5, S1 Nml Nml Nml Nml Nml Right QuadratusFem QuadFemoris L4-5, S1 Nml Nml Nml Nml Nml Left AntTibialis Dp Br Fibular L4-5 Nml Nml Nml Nml Nml Left Gastroc Tibial S1-2 Nml Nml Nml Nml Nml Left Fibularis Long Sup Br Fibular L5-S1 Nml Nml Nml Nml Nml Left Flex Dig Long Tibial L5-S2 Nml Nml Nml Nml Nml Left Ext Dig Brev Dp Br Fibular L5, S1 Nml Nml Nml Nml Nml Left QuadratusFem QuadFemoris L4-5, S1 Nml Nml Nml Nml Nml MTDD
== END 2024-07-05 09:59 | disposition home or self-care (01) ==
PROVIDERS: PCP Nurse Practitioner; Visit Provider Anesthesiology Pain Medicine
DX: R20.2 Paresthesia of skin (principal); M54.17 Radiculopathy, lumbosacral region; Z98.890 Other specified postprocedural states
CPT/HCPCS: 95886; 95910

== ENCOUNTER 2024-09-05 00:19 | Day surgery (SDC) | payer BC, SELFPAY ==
[2024-08-25 13:16] VITALS: BMI 21.2
--- NOTE | 2024-08-25 13:22 | PC.NURSE ---
Report to the Outpatient Waiting Room, entrance under the green pavilion located off [facility], at time _1230_ on date _[id number]_. Planned Procedure Time: _130pm_.? Time changes happen often and if your time is changed the preop area will call you the afternoon before. - You and your visitor will be asked to self-screen and do not enter if you have any COVID symptoms. Please call surgeon if you need to reschedule. - A mask is optional within the hospital at this time. No smoking, or chewing tobacco (or any form of nicotine). No chewing gum, candy or mints. Ok for breakfast. Nothing to eat or drink after 1130am day of procedure. Take only the following medications with a SIP of water on the morning of surgery: ___All medications OK DO NOT STOP ANY OF YOUR OTHER PRESCRIPTION MEDICATIONS PRIOR TO SURGERY EXCEPT THE FOLLOWING Hold all vitamins and supplements for 3 days per anesthesiologist. Medications to discontinue per physician Date to take last dose Please no make-up, nail swedish, hairspray, perfume, deodorant, or body powder the day of surgery.? No jewelry (including any body piercings) or valuables the day of surgery, leave them at home.? Please take a shower or bath the night before, or the morning of, surgery with an antibacterial soap.? Wear comfortable, loose fitting clothing.? - Jewelry must be removed prior to entering the operating room.? Rings and piercings that are not removed may be cut off. - The hospital will not accept responsibility for valuables.? - Please leave all valuables, including medications, at home the day of surgery. If you are going home after surgery, a licensed funeral driver must drive you home.? - NO public transportation without another adult if you receive anesthesia. - We recommend that an adult stay with you for 24 hours following discharge. - We also recommend that you do not drive, make important decision, drink alcoholic beverages, or take any drugs that were not prescribed by your health care provider for at least 24 hours after your discharge time. Follow any additional instructions given to you from your surgeon. Telephone instructions given to __Brandie___and asked if any additional questions and then verbalized understanding. Patient advised to call surgeon office or pre surgery nurse liaison [phone] if any additional questions.
--- NOTE | ~2024-09-05 | XR_ITS ---
INTRAOPERATIVE FLUOROSCOPY: CLINICAL HISTORY: 63 years old Female; BLOCK BILATERAL C2-C3, C4-C5 PROCEDURE COMMENTS: Limited intraoperative fluoroscopy of the cervical spine was performed. CUMULATIVE DOSE: 8.77 mGy FLUOROSCOPY TIME: 99 seconds FINDINGS/IMPRESSION: Please refer to operative note for further details. Reviewed, dictated and finalized at location A.
--- OUTSIDE RECORDS SUMMARY | 2024-09-05 00:23 | XMS_ITS | Referral Summary ---
Author Organization [facility] [place] [facility] [address] [facility] [address] [place] [address] Care Team Providers Care Motor Vehicle Compliance Analyst Name Role Phone Eyal Erazo DO Primary Care Provider [phone] Allergies No known active allergies Medications levothyroxine (SYNTHROID, LEVOTHROID) 50 mcg tablet Take 1 tablet (50 mcg total) by mouth mineral industry teacher before breakfast Active atorvastatin (LIPITOR) 10 mg tablet 2 tablets (20 mg total) 0 Active omega-3 fatty acids-fish oil 300-1,000 mg capsule Take 2 capsules (2,000 mg total) by mouth daily Active cetirizine (ZyrTEC) 10 mg tablet Take 1 tablet (10 mg total) by mouth as needed Active fluticasone propionate (FLONASE) 50 mcg/actuation nasal spray Administer 1 spray into each nostril as needed Active semaglutide (Ozempic) 0.25 mg or 0.5 mg(2 mg/1.5 mL) pen injector injection Inject 0.25 mg under the skin every 7 days Active zolpidem (AMBIEN) 10 mg tablet Take 1 tablet (10 mg total) by mouth nightly as needed 3 Active cholecalciferol (VITAMIN D-3) 1,000 unit Take 1 tablet/capsule (1,000 Units total) by mouth daily Active Active Problems Problem Noted Date Diagnosed Date LBBB (left bundle branch block) 02/24/2018 Social History Tobacco Use Types Packs/Day Years Used Date Smoking Tobacco: Never Cigarettes Smokeless Tobacco: Never Tobacco Cessation:Counseling Given: Not Answered Alcohol Use Standard Drinks/Week Comments Yes 0 (1 standard drink = 0.6 oz pur e alcohol) SOCIAL DRINKER Comments Unknown Sex and Gender Information Value Date Recorded Sex Assigned at Not on file Legal Sex Female 10:38 AM BACKGROUND CHECK COORDINATOR Gender Identity Female 01/29/2019 4:29 PM CDT Sexual Orientation Straight 01/29/2019 4: 29 PM CDT Last Filed Vital Signs Vital Sign Reading Time Taken Comments Blood Pressure 124/82 06/06/2024 11:05 AM BACKGROUND CHECK COORDINATOR Pulse 76 06/06/2024 11:05 AM BACKGROUND CHECK COORDINATOR Temperature - - Respiratory Rate - - Oxygen Saturation 98% 06/06/2024 11:05 AM BACKGROUND CHECK COORDINATOR Inhaled Oxygen Concentration - - Weight 54.9 kg (121 lb) 06/06/2024 11:05 AM BACKGROUND CHECK COORDINATOR Height 160 cm (5' 3 ) 06/06/2024 11:05 AM BACKGROUND CHECK COORDINATOR Body Mass Index 21.43 06/06/2024 11:05 AM BACKGROUND CHECK COORDINATOR Plan of Treatment Not on file Insurance [facility] CHOICE OOS Care Teams Motor Vehicle Compliance Analyst Relationship Specialty Start Date End Date Eyal Earzo DO [facility] - General 08/28/13
--- OUTSIDE RECORDS SUMMARY | 2024-09-05 00:23 | XMS_ITS | Clinical Summary ---
Author Organization [facility] [address] [facility] [address] [place] [address] Care Team Providers Care Water Quality Technician Name Role Phone Eyal Erazo DO Primary Care Provider [phone] Allergies No known active allergies Medications levothyroxine (SYNTHROID, LEVOTHROID) 50 mcg tablet Take 1 tablet (50 mcg total) by mouth upholsterer helper before breakfast Active atorvastatin (LIPITOR) 10 mg [...] Date LBBB (left bundle branch block) 02/24/2018 Surgical History Surgery Date Site/Laterality Comments BACK SURGERY Back Surgery HYSTERECTOMY Hysterectomy LASIK SPINE SURGERY Medical History Medical History Date Comments Diabetes mellitus (HCC) Hypertension Thyroid disease Family History Medical History Relation Name Comments Alzheimer's disease Father Tommy Fitzgerald Cancer Father Tommy Fitzgerald Heart failure Maternal Grandfather Conges tive Heart Failure; Diabetes Mother Vika Fitzgerald Heart attack Mother Vika Fitzgerald Myocardial Infa rction; Heart disease Mother Vika Fitzgerald Hyperlipidemia Mother Vika Fitzgerald Hypertension Mother Vika Fitzgerald Miscarriages / Stillbirths Mother Vika Fitzgerald Stroke Mother Vika Fitzgerald Relation Name Status Comments Father Tommy Fitzgerald Maternal Grandfather Alive Mother Vika Fitzgerald Alive Social History Tobacco Use Types Packs/Day Years Used Date Smoking Tobacco: Never Cigarettes Smokeless Tobacco: Never Tobacco Cessation:Counseling Given: Not Answered Alcohol Use Standard Drinks/Week Comments Yes 0 (1 standard drink = 0.6 oz pur e alcohol) SOCIAL DRINKER Comments Unknown Sex and Gender Information Value Date Recorded Sex Assigned at Not on file Legal Sex Female 10:38 AM MEDIA SERVICES DIRECTOR Gender Identity Female 01/29/2019 4:29 PM CDT Sexual Orientation Straight 01/29/2019 4: 29 PM CDT Obstetrics History Last Filed Vital Signs Vital Sign Reading Time Taken Comments Blood Pressure 124/82 06/06/2024 11:05 AM MEDIA SERVICES DIRECTOR Pulse 76 06/06/2024 11:05 AM MEDIA SERVICES DIRECTOR Temperature - - Respiratory Rate - - Oxygen Saturation 98% 06/06/2024 11:05 AM MEDIA SERVICES DIRECTOR Inhaled Oxygen Concentration - - Weight 54.9 kg (121 lb) 06/06/2024 11:05 AM MEDIA SERVICES DIRECTOR Height 160 cm (5' 3 ) 06/06/2024 11:05 AM MEDIA SERVICES DIRECTOR Body Mass Index 21.43 06/06/2024 11:05 AM MEDIA SERVICES DIRECTOR Plan of Treatment Health Maintenance Due Date Last Done Comments Breast Cancer Screening-Mammogram 1961 Colon Cancer Screening-Colonoscopy 1961 Depression Screening 1961 Hepatitis C Screening 1961 Hepatitis B Screening 11/21/1979 Regular Well Visit/Exam 18-64 11/21/1979 Zoster Vaccine (1 of 2) 11/21/2011 Influenza Vaccine (#1) 2024 DTaP/Tdap/Td Vaccine (3 - Td or Tdap) 11/21/2033 11/22/2023, 10/06/2015 Pneumococcal vaccine <65 Aged Out No longer eligible based on patient's age to complete this topic Insurance [facility] OOS Care Teams Water Quality Technician Relationship Specialty Start Date End Date Eyal Erazo DO PCP - General 08/28/13
--- NOTE | 2024-09-05 13:12 | WPDHPUPDATE1 ---
History and Physical Update Update Date/Time: 09/05/24 13:12 History and Physical has been reviewed, including an updated exam of the patient. There are NO changes in the patient's condition. Risks, benefits, and alternatives have been discussed and questions answered. Patient agrees to proceed with procedure.
--- NOTE | 2024-09-05 13:13 | P.OP_ITS ---
Procedure Note - Detailed Date of Procedure 09/05/24 Pre-op Diagnosis spondylosis cervical region Post-op Diagnosis Same Procedure Performed Diagnostic Bilateral Cervical Medial Branch Blocks at C2-3, C3, C4 Blocking the Bilateral C2-3, C3-4 Facet Joints Under Fluoroscopic Guidance and with Contrast Control (4 levels blocked). Surgeon Horace Marshall MD Field Application Engineer None. Anesthesia Local Description of Procedure INFORMED CONSENT: Risks, benefits and alternatives to the procedure were discussed in detail with the patient who expressed explicit understanding and consent to proceed. Patient was informed verbally and in written form regarding the risks associated with the procedure including the low risk of serious infection, bleeding/bruising, allergic reaction, nerve or organ injury, paralysis, procedural site pain or discomfort, worsening pain and/or mobility, failure to treat and/or disfigurement. The patient expressed explicit understanding and consent to proceed. All materials required for the procedure were available prior to procedure start. Site and side was marked prior to procedure and confirmed in the presence of the patient. PROCEDURE IN DETAIL: The patient was brought to the procedural suite and placed in the left lateral decubitus position with head stabilized. Patient was made comfortable with use of pillows under the head and between the knees and ankles. Skin overlying the injection site on the affected side was prepared broadly with tinted 3ml ChloraPrep applicator and draped in a sterile manner. Aseptic technique was used throughout. The endplates of the vertebral bodies at the site(s) of interest were aligned in the lateral fluoroscopic view relative to the patient. Image was optimized for visualization of the pars interarticularis at each target site. Local anesthesia was established by infiltration with approximately 5 mL of 1% lidocaine via a 1-1/2 inch 27- gauge needle. A 25-gauge 3.5 inch Quincke spinal needle was advanced until the needle tip contacted the periosteum of the pars interarticularis at the target site, the right C2-3 medial branch. AP view was utilized to confirm the appropriate placement of the needle tip just lateral to the periosteum at the center point of the pars interarticularis. In the lateral view, 0.25 mL of Omnipaque 300 contrast medium was injected after negative aspiration for CSF, blood or other bodily fluid, showing appropriate extra-articular spread of contrast without evidence of intravascular, foraminal or intrathecal placement. A 0.25 mL solution of 0.5% PF bupivacaine was injected after negative repeat aspiration. Appropriate spread of the injectate was confirmed with washout of previously injected contrast. No parasthesias were elicited. Needle was removed completely intact without difficulty. The same procedure was repeated for all additional intended levels/structures treated on the ipsilateral side, the right C3, C4 medial branches with identical methodology modified to compensate for different location, with similar results and no evidence of complication. The same procedure was then repeated for all additional intended levels/structures treated on the contralateral side, the left C2-3, C3, C4 medial branches, with identical methodology and positioning modified to compensate for the contralateral location, with similar results and no evidence of complication. Images were saved and documented in the patient chart. Patient's skin was cleaned and sterile bandage applied. The patient tolerated the procedure well. The patient was transported to the recovery area in stable condition where they were observed for an appropriate amount of time prior to discharge, without evidence of complication. Patient was instructed on the appropriate completion of a pain diary over the next 12-24 hours. The patient was instructed to avoid excessive activity for the next 48 hours, including climbing and frequent use of stairs. Showers only for 48 hours. They were instructed not to drive or operate heavy machinery for 24 hours. They are to monitor for severe headaches, fevers, chills, night sweats, erythema/swelling at the site or any other signs of infection, bleeding/bruising, bowel or bladder changes as well as new pain, weakness or numbness in the upper or lower extremity. Should they notice these changes, they are instructed to call our office immediately or report directly to the nearest Emergency Department if no answer or if after posted office hours. COMPLICATIONS: None. COMMENTS: None. CONTRAST WASTED: 28.5mL Omnipaque 300. Complications No immediate complications Condition Stable Disposition Same day [facility] Billing Surgery - Charge Forward: Surgery Billing
[2024-09-05 13:50] VITALS: BP 142/70; PULSE 80; RESP 16; TEMP 36.8; O2SAT 100; BMI 20.9
[2024-09-05 14:16] VITALS: BP 139/63; PULSE 70; RESP 16; O2SAT 99
[2024-09-05] MEDS: LIDOCAINE 1% PF INJ 5 ML VIAL 10 ML INFILTRATE (14:23)
[2024-09-05] MEDS: BUPivacaine HCL 0.5% PF 30 ML VIAL INFILTRATE (14:24)
[2024-09-05 14:30] VITALS: BP 139/65; PULSE 87; RESP 16; O2SAT 99
[2024-09-05 14:40] VITALS: BP 155/86; PULSE 71; RESP 16; O2SAT 99
[2024-09-05 14:42] VITALS: BP 152/86; PULSE 74; RESP 16; O2SAT 100
== END 2024-09-05 15:00 | disposition home or self-care (01) ==
PROVIDERS: PCP Nurse Practitioner; Visit Provider Anesthesiology Pain Medicine
PROC: (CPT 64490; principal; 2024-09-05 15:30)
DX: M47.812 Spondylosis without myelopathy or radiculopathy, cervical region (principal)
CPT/HCPCS: 64490; 64491 ×2; 64492 ×2; 99199; J2003; Q9965

== ENCOUNTER 2024-10-30 01:13 | Day surgery (SDC) | payer OTHER, SELFPAY ==
[2024-10-19 12:11] VITALS: BMI 21.2
--- NOTE | 2024-10-19 12:22 | PC.NURSE ---
Report to the Outpatient Waiting Room, entrance under the green pavilion located off [facility], at time ___1315____ on date ___10/30/24____. Planned Procedure Time: ____1415____.? Time changes happen often and if your time is changed the preop area will call you the afternoon before. - You and your visitor will be asked to self-screen and do not enter if you have any COVID symptoms. Please call surgeon if you need to reschedule. - A mask is optional within the hospital at this time. 1. It is alright to eat a light breafast/lunch prior to procedure depending on schedule time. Do not eat or drink anything other than scheduled medications with small amounts of clear liquid (water) for two hours prior to procedure. 2. Take a bath/shower the evening before and morning of procedure. 3. Please take your scheduled medications, especially blood pressure and diabetes medications as prescribed, with small sips of water prior to procedure. You may also take your prescribed pain medicaitons as needed. 4. Patient is not allowed to drive 24 hours after procedure. Follow office instructions from [facility] document for anticoagulant medication instructions - Jewelry must be removed prior to entering the operating room.? Rings and piercings that are not removed may be cut off. - The hospital will not accept responsibility for valuables.? - Please leave all valuables, including medications, at home the day of surgery. Follow any additional instructions given to you from your surgeon. Telephone instructions given to ____Brandie and asked if any additional questions and then verbalized understanding. Patient advised to call surgeon office or pre surgery nurse liaison [phone] if any additional questions.
--- NOTE | ~2024-10-30 | XR_ITS ---
INTRAOPERATIVE FLUOROSCOPY: CLINICAL HISTORY: 63 years old Female; C2-3,C3,C4 BLOCKS/FACET JTS PROCEDURE COMMENTS: Limited intraoperative fluoroscopy of the cervical spine was performed. CUMULATIVE DOSE: 2.75 mGy FLUOROSCOPY TIME: 87 seconds FINDINGS/IMPRESSION: Please refer to operative note for further details. Reviewed, dictated and finalized at location A.
--- OUTSIDE RECORDS SUMMARY | 2024-10-30 01:16 | XMS_ITS | Clinical Summary ---
Author Organization [facility] [address] [facility] [address] [place] [address] Care Team Providers Care Infection Prevention Practitioner Name Role Phone Eyal Erazo DO Primary Care Provider +1- [phone] Allergies No known active allergies Medications levothyroxine (SYNTHROID, LEVOTHROID) 50 mcg tablet Take 1 tablet (50 mcg total) by mouth desk officer before breakfast Active atorvastatin (LIPITOR) 10 mg [...] on file Legal Sex Female 10:38 AM GARDENER Gender Identity Female 01/29/2019 4:29 PM CDT Sexual Orientation Straight 01/29/2019 4: 29 PM CDT Obstetrics History Last Filed Vital Signs Vital Sign Reading Time Taken Comments Blood Pressure 124/82 06/06/2024 11:05 AM GARDENER Pulse 76 06/06/2024 11:05 AM GARDENER Temperature - - Respiratory Rate - - Oxygen Saturation 98% 06/06/2024 11:05 AM GARDENER Inhaled Oxygen Concentration - - Weight 54.9 kg (121 lb) 06/06/2024 11:05 AM GARDENER Height 160 cm (5' 3 ) 06/06/2024 11:05 AM GARDENER Body Mass Index 21.43 06/06/2024 11:05 AM GARDENER Plan of Treatment Health Maintenance Due Date Last Done Comments Breast Cancer Screening-Mammogram 1961 Colon Cancer Screening-Colonoscopy 1961 Depression Screening 1961 Hepatitis C Screening 1961 Hepatitis B Screening 11/21/1979 Regular Well Visit/Exam 18-64 11/21/1979 Zoster Vaccine (1 of 2) 11/21/2011 Influenza Vaccine (Season Ended) 2025 DTaP/Tdap/Td Vaccine (3 - Td or Tdap) 11/21/2033 11/22/2023, 10/06/2015 Pneumococcal vaccine <65 Aged Out No longer eligible based on patient's age to complete this topic Insurance [facility] CHOICE OOS Care Teams Infection Prevention Practitioner Relationship Specialty Start Date End Date Eyal Erazo DO PCP - General 08/28/13
--- OUTSIDE RECORDS SUMMARY | 2024-10-30 01:17 | XMS_ITS | Referral Summary ---
Author Organization [facility] [address] [facility] [address] [place] [address] Care Team Providers Care Dog Obedience Instructor Name Role Phone Eyal Erazo DO Primary Care Provider +1- [phone] Allergies No known active allergies Medications levothyroxine (SYNTHROID, LEVOTHROID) 50 mcg tablet Take 1 tablet (50 mcg total) by mouth sales attendant building materials before breakfast Active atorvastatin (LIPITOR) 10 mg [...] on file Legal Sex Female 10:38 AM LABOR CONTRACTOR Gender Identity Female 01/29/2019 4:29 PM CDT Sexual Orientation Straight 01/29/2019 4: 29 PM CDT Last Filed Vital Signs Vital Sign Reading Time Taken Comments Blood Pressure 124/82 06/06/2024 11:05 AM LABOR CONTRACTOR Pulse 76 06/06/2024 11:05 AM LABOR CONTRACTOR Temperature - - Respiratory Rate - - Oxygen Saturation 98% 06/06/2024 11:05 AM LABOR CONTRACTOR Inhaled Oxygen Concentration - - Weight 54.9 kg (121 lb) 06/06/2024 11:05 AM LABOR CONTRACTOR Height 160 cm (5' 3 ) 06/06/2024 11:05 AM LABOR CONTRACTOR Body Mass Index 21.43 06/06/2024 11:05 AM LABOR CONTRACTOR Plan of Treatment Not on file Insurance [facility] CHOICE OOS Care Teams Dog Obedience Instructor Relationship Specialty Start Date End Date Eyal Erazo DO [facility] - General 08/28/13
--- NOTE | 2024-10-30 11:55 | PM.HPGS ---
History of Present Illness History of Present Illness Consent: Risks, benefits, and alternatives have been discussed and questions answered. Patient agrees to proceed with procedure. Chief complaint: spondylosis cervical region, chronic neck pain Narrative: Brandie Alexander is a 63 year old female with chronic, recalcitrant and disabling bilateral cervical pain secondary to degenerative spondylosis with failure to respond to aggressive conservative measures including PT, oral and topical analgesics, opioid and nonopioid analgesics, rest, time and activity/behavioral modification over the past 1-2 years who presents for diagnostic/prognostic medial branch blocks of the bilateral C2-3, C3, C4 medial branches/dorsal ramus(# 2) addressing the bilateral C2-3, C3-4 facet joints under fluoroscopic guidance and with contrast control. Review of Systems Review of Systems: Patient denies any new infectious, allergic, cardiopulmonary, neurologic or constitutional symptoms or changes in activity tolerance or exercise capacity including new or progressive SOB/RIOS, peripheral edema, productive cough, dysuria, nausea/vomiting, diarrhea, weight change, fevers/chills/night sweats, new or progressive neurologic deficit, cognitive or mood changes since last seen, except as documented in the HPI. All systems reviewed & are unremarkable except as noted in HPI and below PMFSH Past Medical History Medical History Acquired hypothyroidism Lumbar radiculitis Mixed hyperlipidemia Insomnia Postcoital UTI Family history of pulmonary fibrosis Diverticulitis large intestine Herniated disc PVC (premature ventricular contraction) history Chicken pox Type 2 diabetes mellitus without complication, without long-term current use of insulin LBBB (left bundle branch block) Hypertension Surgical History Surgical History H/O wrist surgery H/O: hysterectomy 2007 Previous back surgery L5-S1 infusion with cage and screws 2009 Family History Family History Mother Hypertension Cerebrovascular accident Family history of hypothyroidism Family history of diabetes mellitus in first degree relative Myocardial infarction Sibling Family history of hypothyroidism Father Malignant neoplasm of prostate Heart problem Son Multiple sclerosis Graves' disease Social History Social History Social History: Caffeine-none Smoking status: Never smoker Second hand tobacco smoke exposure: No Alcohol intake: current Drinks per week: 4 Alcohol use details: occasional Substance use: never Substance use type: does not use Do You Feel Safe in your Home?: Yes Lack of Transportation: No Lack of Food: Never True Current Housing: I Have Housing Concerned About Future Housing: No Difficulty Paying Gas/Electric Bills: No Difficulty Paying for Meds: No Currently Unemployed: No Education: Associate Degree Difficulty w/ Childcare or Family Care: No Living arrangements: with family Spiritual care concerns: No Meds Home Medications and Allergies Home Medications ?Medication ?Instructions ?Recorded ?Confirmed ?Type omega-3 fatty acids 1,000 mg 2,000 mg PO DAILY 08/06/21 10/19/24 History capsule cholecalciferol (vitamin D3) 25 25 mcg PO DAILY 05/02/24 10/19/24 History mcg (1,000 unit) capsule valacyclovir 1 gram tablet 1,000 mg PO BID #90 tabs 06/14/24 10/19/24 Rx blood-glucose sensor (Dexcom G7 #9 ea 07/10/24 10/19/24 Rx Sensor device) atorvastatin 20 mg tablet See Rx Instructions .Route 07/20/24 10/19/24 Rx .COMPLEX #90 tabs levothyroxine 50 mcg tablet See Rx Instructions .Route 08/07/24 10/19/24 Rx .COMPLEX #90 tabs nitrofurantoin 100 mg PO DAILY PRN UTI Prevention 08/14/24 10/19/24 Rx monohydrate/macrocrystals 100 mg #10 caps capsule fluticasone propionate 50 1 spray intranasal Q12H #54.6 mL 09/06/24 10/19/24 Rx mcg/actuation nasal spray,suspension estradiol 0.025 mg/24 hr weekly 1 patch transdermal WEEKLY #12 ea 09/21/24 10/19/24 Rx transdermal patch semaglutide 1 mg/dose (4 mg/3 mL) 1 mg (0.75 mL) subcut WEEKLY #9 mL 09/21/24 10/19/24 Rx subcutaneous pen injector (Ozempic) cetirizine 10 mg tablet (Zyrtec) 10 mg PO DAILY #90 tabs 10/10/24 10/19/24 Rx zolpidem 10 mg tablet 10 mg PO QHS PRN insomnia #90 tabs 10/10/24 10/19/24 Rx Allergies Allergy/AdvReac Type Severity Reaction Status Date / Time hydrocodone (From Vicodin) AdvReac Mild Nausea and Verified 10/19/24 12:09 Vomiting Exam Narrative: The patient's physical exam is essentially unchanged from prior examination on 09/25/2024. Specifically, patient demonstrates normal lung capacity, tidal volume and respiratory rate without wheezes, crackles, rales or rubs. Heart rate and rhythm are regular without murmurs, gallops or rubs. No JVD. Pulses 2+ globally without increasing peripheral edema. AAOx3 with no evidence of confusion, intoxication or altered mental state, NC/AT without acute distress or altered consciousness. Speech, cognition, mood, insight and judgment at baseline and within normal limits. Assessment and Plan Assessment and plan (1) Degenerative arthritis of cervical spine: Code(s): M47.812 - Spondylosis without myelopathy or radiculopathy, cervical region Status: Acute Assessment and Plan: Proceed as planned with diagnostic/prognostic medial branch blocks of the bilateral C2-3, C3, C4 medial branches/dorsal ramus(# 2) addressing the bilateral C2-3, C3-4 facet joints under fluoroscopic guidance and with contrast control. (2) Lumbosacral spondylosis: Code(s): M47.817 - Spondylosis without myelopathy or radiculopathy, lumbosacral region Status: Acute (3) Dorsalgia of lumbar region: Code(s): M54.50 - Low back pain, unspecified Status: Acute
--- NOTE | 2024-10-30 11:57 | WPDHPUPDATE1 ---
History and Physical Update Update Date/Time: 10/30/24 11:57 History and Physical has been reviewed, including an updated exam of the patient. There are NO changes in the patient's condition. Risks, benefits, and alternatives have been discussed and questions answered. Patient agrees to proceed with procedure.
--- NOTE | 2024-10-30 11:58 | W.PM.PROC2 ---
Procedure Note - Detailed Date of Procedure 10/30/24 Pre-op Diagnosis spondylosis cervical region, chronic neck pain Post-op Diagnosis Same Procedure Performed Diagnostic bilateral Cervical Medial Branch Blocks at C2-3, C3, C4 Blocking the bilateral C2-3, C3-4 Facet Joints Under Fluoroscopic Guidance and with Contrast Control (4 levels blocked). Surgeon Horace Marshall MD Pet Food Deboner None. Anesthesia Local Description of Procedure INFORMED CONSENT: Risks, benefits and alternatives to the procedure were discussed in detail with the patient who expressed explicit understanding and consent to proceed. Patient was informed verbally and in written form regarding the risks associated with the procedure including the low risk of serious infection, bleeding/bruising, allergic reaction, nerve or organ injury, paralysis, procedural site pain or discomfort, worsening pain and/or mobility, failure to treat and/or disfigurement. The patient expressed explicit understanding and consent to proceed. All materials required for the procedure were available prior to procedure start. Site and side was marked prior to procedure and confirmed in the presence of the patient. PROCEDURE IN DETAIL: The patient was brought to the procedural suite and placed in the left lateral decubitus position with head stabilized. Patient was made comfortable with use of pillows under the head and between the knees and ankles. Skin overlying the injection site on the affected side was prepared broadly with tinted 3ml ChloraPrep applicator and draped in a sterile manner. Aseptic technique was used throughout. The endplates of the vertebral bodies at the site(s) of interest were aligned in the lateral fluoroscopic view relative to the patient. Image was optimized for visualization of the pars interarticularis at each target site. Local anesthesia was established by infiltration with approximately 5 mL of 1% lidocaine via a 1-1/2 inch 27- gauge needle. A 25-gauge 3.5 inch Quincke spinal needle was advanced until the needle tip contacted the periosteum of the pars interarticularis at the target site, the right C2-3 medial branch. AP view was utilized to confirm the appropriate placement of the needle tip just lateral to the periosteum at the center point of the pars interarticularis. In the lateral view, 0.25 mL of Omnipaque 300 contrast medium was injected after negative aspiration for CSF, blood or other bodily fluid, showing appropriate extra-articular spread of contrast without evidence of intravascular, foraminal or intrathecal placement. A 0.25 mL solution of 2.0% PF lidocaine was injected after negative repeat aspiration. Appropriate spread of the injectate was confirmed with washout of previously injected contrast. No parasthesias were elicited. Needle was removed completely intact without difficulty. The same procedure was repeated for all additional intended levels/structures treated on the ipsilateral side, the right C3, C4 medial branches with identical methodology modified to compensate for different location, with similar results and no evidence of complication. The same procedure was then repeated for all additional intended levels/structures treated on the contralateral side, the left C2-3, C3, C4 medial branches, with identical methodology and positioning modified to compensate for the contralateral location, with similar results and no evidence of complication. Images were saved and documented in the patient chart. Patient's skin was cleaned and sterile bandage applied. The patient tolerated the procedure well. The patient was transported to the recovery area in stable condition where they were observed for an appropriate amount of time prior to discharge, without evidence of complication. Patient was instructed on the appropriate completion of a pain diary over the next 12-24 hours. The patient was instructed to avoid excessive activity for the next 48 hours, including climbing and frequent use of stairs. Showers only for 48 hours. They were instructed not to drive or operate heavy machinery for 24 hours. They are to monitor for severe headaches, fevers, chills, night sweats, erythema/swelling at the site or any other signs of infection, bleeding/bruising, bowel or bladder changes as well as new pain, weakness or numbness in the upper or lower extremity. Should they notice these changes, they are instructed to call our office immediately or report directly to the nearest Emergency Department if no answer or if after posted office hours. COMPLICATIONS: None. COMMENTS: None. CONTRAST WASTED: 28.5 mL Omnipaque 300. Complications No immediate complications Condition Stable Disposition Same day [facility] Billing Surgery - Charge Forward: Surgery Billing
[2024-10-30 13:43] VITALS: BP 139/72; PULSE 73; TEMP 36.3; O2SAT 99
[2024-10-30 13:45] VITALS: BMI 20.9
[2024-10-30 14:35] VITALS: BP 145/109; PULSE 70; RESP 14; O2SAT 97
[2024-10-30] MEDS: LIDOCAINE 2% PF LOCAL INJ 5 ML VIAL INFILTRATE (14:38)
[2024-10-30 14:41] VITALS: BP 142/66; PULSE 67; RESP 14; O2SAT 99
[2024-10-30 14:47] VITALS: BP 174/90; PULSE 67; RESP 14; O2SAT 100
[2024-10-30 14:57] VITALS: BP 153/83; PULSE 70; RESP 18; O2SAT 100
== END 2024-10-30 15:17 | disposition home or self-care (01) ==
PROVIDERS: PCP Nurse Practitioner; Visit Provider Anesthesiology Pain Medicine
PROC: (CPT 64490; principal; 2024-10-30 14:15)
DX: M54.50 Low back pain, unspecified (principal); M47.812 Spondylosis without myelopathy or radiculopathy, cervical region; M47.817 Spondylosis without myelopathy or radiculopathy, lumbosacral region; E03.9 Hypothyroidism, unspecified; E78.2 Mixed hyperlipidemia; Z87.19 Personal history of other diseases of the digestive system; E11.9 Type 2 diabetes mellitus without complications; I10 Essential (primary) hypertension; G47.00 Insomnia, unspecified; I49.3 Ventricular premature depolarization; I44.7 Left bundle-branch block, unspecified; Z79.85 Long-term (current) use of injectable non-insulin antidiabetic drugs; Z98.890 Other specified postprocedural states; Z98.1 Arthrodesis status; Z80.42 Family history of malignant neoplasm of prostate; Z82.49 Family history of ischemic heart disease and other diseases of the circulatory system
CPT/HCPCS: 64490; 64491; 64492; 99199; J2003; Q9965

== ENCOUNTER 2024-12-06 08:50 | Outpatient (CLI) | payer OTHER, SELFPAY ==
--- NOTE | 2024-12-06 09:07 | ECG_ITS ---
Test Date: 2024-12-06 09:40:54 Measurements Intervals [place] Rate: 69 P: 73 MS: 182 QRS: -28 QRSD: 134 T: 72 QT: 427 QTc: 459 Interpretive Statements SINUS RHYTHM POSSIBLE LEFT ATRIAL ENLARGEMENT LEFT BUNDLE BRANCH BLOCK ABNORMAL ECG No previous ECG available for comparison Electronically Signed On 12-06-2024 10:13:11 CDT by John Paul Burnett D.O.
--- OUTSIDE RECORDS SUMMARY | 2024-12-06 09:24 | XMS_ITS | Referral Summary ---
Author Organization [facility] [place] [address] [facility] [address] Address [address] [place] [address] Care Team Providers Care Service Order Dispatcher Name Role Phone Eyal Erazo DO Primary Care Provider +1- [phone] Allergies No known active allergies Medications levothyroxine (SYNTHROID, LEVOTHROID) 50 mcg tablet Take 1 tablet (50 mcg total) by mouth maintenance shop manager before breakfast Active atorvastatin (LIPITOR) 10 mg [...] on file Legal Sex Female 10:38 AM HOT MILL ROLLER Gender Identity Female 01/29/2019 4:29 PM CDT Sexual Orientation Straight 01/29/2019 4: 29 PM CDT Last Filed Vital Signs Vital Sign Reading Time Taken Comments Blood Pressure 124/82 06/06/2024 11:05 AM HOT MILL ROLLER Pulse 76 06/06/2024 11:05 AM HOT MILL ROLLER Temperature - - Respiratory Rate - - Oxygen Saturation 98% 06/06/2024 11:05 AM HOT MILL ROLLER Inhaled Oxygen Concentration - - Weight 54.9 kg (121 lb) 06/06/2024 11:05 AM HOT MILL ROLLER Height 160 cm (5' 3) 06/06/2024 11:05 AM HOT MILL ROLLER Body Mass Index 21.43 06/06/2024 11:05 AM HOT MILL ROLLER Plan of Treatment Not on file Insurance [facility] CHOICE OOS Care Teams Service Order Dispatcher Relationship Specialty Start Date End Date Eyal Erazo DO [facility] - General 08/28/13
--- OUTSIDE RECORDS SUMMARY | 2024-12-06 09:24 | XMS_ITS | Clinical Summary ---
Author Organization [facility] [place] [address] [facility] [address] Address [address] [place] [address] Care Team Providers Care Product Safety Compliance Leader Name Role Phone Eyal Erazo DO Primary Care Provider +1- [phone] Allergies No known active allergies Medications levothyroxine (SYNTHROID, LEVOTHROID) 50 mcg tablet Take 1 tablet (50 mcg total) by mouth aircraft load controller before breakfast Active atorvastatin (LIPITOR) 10 mg [...] on file Legal Sex Female 10:38 AM WARD SECRETARY Gender Identity Female 01/29/2019 4:29 PM CDT Sexual Orientation Straight 01/29/2019 4: 29 PM CDT Obstetrics History Last Filed Vital Signs Vital Sign Reading Time Taken Comments Blood Pressure 124/82 06/06/2024 11:05 AM WARD SECRETARY Pulse 76 06/06/2024 11:05 AM WARD SECRETARY Temperature - - Respiratory Rate - - Oxygen Saturation 98% 06/06/2024 11:05 AM WARD SECRETARY Inhaled Oxygen Concentration - - Weight 54.9 kg (121 lb) 06/06/2024 11:05 AM WARD SECRETARY Height 160 cm (5' 3) 06/06/2024 11:05 AM WARD SECRETARY Body Mass Index 21.43 06/06/2024 11:05 AM WARD SECRETARY Plan of Treatment Health Maintenance Due Date [...] age to complete this topic Insurance BLUE [facility] CHOICE OOS Care Teams Product Safety Compliance Leader Relationship Specialty Start Date End Date Eyal Erazo DO PCP - General 08/28/13
== END 2024-12-06 08:51 | disposition home or self-care (01) ==
PROVIDERS: PCP Internal Medicine; Visit Provider Anesthesiology
DX: Z01.810 Encounter for preprocedural cardiovascular examination (principal); R94.31 Abnormal electrocardiogram [ECG] [EKG]; I44.7 Left bundle-branch block, unspecified; I10 Essential (primary) hypertension; E78.5 Hyperlipidemia, unspecified
CPT/HCPCS: 93005

== ENCOUNTER 2024-12-12 05:55 | Day surgery (SDC) | payer OTHER, SELFPAY ==
--- NOTE | ~2024-12-12 | XR_ITS ---
INTRAOPERATIVE FLUOROSCOPY: CLINICAL HISTORY: 64 years old Female; THERMAL RADIOFREQUENCY ABLATION BILATERAL C2-3 C3 C4 MEDIAL PROCEDURE COMMENTS: Limited intraoperative fluoroscopy of the cervical spine was performed. CUMULATIVE DOSE: 12.6 mGy FLUOROSCOPY TIME: 93 seconds FINDINGS/IMPRESSION: Please refer to operative note for further details. Reviewed, dictated and finalized at location A.
--- OUTSIDE RECORDS SUMMARY | 2024-12-12 06:04 | XMS_ITS | Referral Summary ---
Author Organization [facility] [place] [address] [facility] [address] Address [address] [place] [address] Care Team Providers Care Hall Manager Name Role Phone Eyal Erazo DO Primary Care Provider +1- [phone] Allergies No known active allergies Medications levothyroxine (SYNTHROID, LEVOTHROID) 50 mcg tablet Take 1 tablet (50 mcg total) by mouth lab associate before breakfast Active atorvastatin (LIPITOR) 10 mg [...] on file Legal Sex Female 10:38 AM BLOCK OUT MACHINE OPERATOR Gender Identity Female 01/29/2019 4:29 PM CDT Sexual Orientation Straight 01/29/2019 4: 29 PM CDT Last Filed Vital Signs Vital Sign Reading Time Taken Comments Blood Pressure 124/82 06/06/2024 11:05 AM BLOCK OUT MACHINE OPERATOR Pulse 76 06/06/2024 11:05 AM BLOCK OUT MACHINE OPERATOR Temperature - - Respiratory Rate - - Oxygen Saturation 98% 06/06/2024 11:05 AM BLOCK OUT MACHINE OPERATOR Inhaled Oxygen Concentration - - Weight 54.9 kg (121 lb) 06/06/2024 11:05 AM BLOCK OUT MACHINE OPERATOR Height 160 cm (5' 3) 06/06/2024 11:05 AM BLOCK OUT MACHINE OPERATOR Body Mass Index 21.43 06/06/2024 11:05 AM BLOCK OUT MACHINE OPERATOR Plan of Treatment Not on file Insurance [facility] CHOICE OOS Care Teams Hall Manager Relationship Specialty Start Date End Date Eyal Erazo DO [facility] - General 08/28/13
--- OUTSIDE RECORDS SUMMARY | 2024-12-12 06:04 | XMS_ITS | Clinical Summary ---
Author Organization [facility] [place] [address] [facility] [address] Address [address] [place] [address] Care Team Providers Care Truck Driving Name Role Phone Eyal Erazo DO Primary Care Provider +1- [phone] Allergies No known active allergies Medications levothyroxine (SYNTHROID, LEVOTHROID) 50 mcg tablet Take 1 tablet (50 mcg total) by mouth biomass power plant superintendent before breakfast Active atorvastatin (LIPITOR) 10 mg [...] on file Legal Sex Female 10:38 AM SCHOOL DIRECTOR Gender Identity Female 01/29/2019 4:29 PM CDT Sexual Orientation Straight 01/29/2019 4: 29 PM CDT Obstetrics History Last Filed Vital Signs Vital Sign Reading Time Taken Comments Blood Pressure 124/82 06/06/2024 11:05 AM SCHOOL DIRECTOR Pulse 76 06/06/2024 11:05 AM SCHOOL DIRECTOR Temperature - - Respiratory Rate - - Oxygen Saturation 98% 06/06/2024 11:05 AM SCHOOL DIRECTOR Inhaled Oxygen Concentration - - Weight 54.9 kg (121 lb) 06/06/2024 11:05 AM SCHOOL DIRECTOR Height 160 cm (5' 3) 06/06/2024 11:05 AM SCHOOL DIRECTOR Body Mass Index 21.43 06/06/2024 11:05 AM SCHOOL DIRECTOR Plan of Treatment Health Maintenance Due [...] age to complete this topic Insurance BLUE [facility] CHOICE OOS Care Teams Truck Driving Relationship Specialty Start Date End Date Eyal Erazo DO PCP - General 08/28/13
[2024-12-12 06:20] VITALS: BP 128/79; PULSE 76; RESP 15; TEMP 36.6; O2SAT 100
[2024-12-12] MEDS: LACTATED RINGERS 1,000 ML 30 ML IV CONT (06:20)
--- NOTE | 2024-12-12 06:23 | PM.HPGS ---
History of Present Illness History of Present Illness Consent: Risks, benefits, and alternatives have been discussed and questions answered. Patient agrees to proceed with procedure. Chief complaint: Cervical Spondylosis w/o Myelopathy or Radiculop Narrative: Brandie Alexander is a 64 year old female with chronic, recalcitrant and disabling bilateral cervicalgia secondary to degenerative spondylosis with failure to respond to aggressive conservative measures including PT, oral and topical analgesics, opioid and nonopioid analgesics, rest, time and activity/behavioral modification over the past 1-2 years who presents for thermal radiofrequency ablation of the bilateral C2-3, C3, C4 medial branches addressing the bilateral C2-3, C3-4 facet joints under fluoroscopic guidance. Review of Systems Review of Systems: All systems reviewed & are unremarkable except as noted in HPI and below PMFSH Past Medical History Medical History Acquired hypothyroidism Lumbar radiculitis Mixed hyperlipidemia Insomnia Postcoital UTI Family history of pulmonary fibrosis Diverticulitis large intestine Herniated disc PVC (premature ventricular contraction) history Chicken pox Type 2 diabetes mellitus without complication, without long-term current use of insulin LBBB (left bundle branch block) Hypertension Surgical History Surgical History H/O wrist surgery H/O: hysterectomy 2007 Previous back surgery L5-S1 infusion with cage and screws 2009 Family History Family History Mother Hypertension Cerebrovascular accident Family history of hypothyroidism Family history of diabetes mellitus in first degree relative Myocardial infarction Sibling Family history of hypothyroidism Father Malignant neoplasm of prostate Heart problem Son Multiple sclerosis Graves' disease Social History Social History Social History: Caffeine-none Smoking status: Never smoker Second hand tobacco smoke exposure: No Alcohol intake: current Drinks per week: 4 Alcohol use details: occasional Substance use: never Substance use type: does not use Do You Feel Safe in your Home?: Yes Lack of Transportation: No Lack of Food: Never True Current Housing: I Have Housing Concerned About Future Housing: No Difficulty Paying Gas/Electric Bills: No Difficulty Paying for Meds: No Currently Unemployed: No Education: Associate Degree Difficulty w/ Childcare or Family Care: No Living arrangements: with family Additional living arrangements comments: Spiritual care concerns: No Meds Home Medications and Allergies Home Medications ?Medication ?Instructions ?Recorded ?Confirmed ?Type omega-3 fatty acids 1,000 mg 2,000 mg PO DAILY 08/06/21 12/12/24 History capsule cholecalciferol (vitamin D3) 25 25 mcg PO DAILY 05/02/24 12/12/24 History mcg (1,000 unit) capsule blood-glucose sensor ([employer] G7 #9 ea 07/10/24 10/19/24 Rx Sensor device) nitrofurantoin 100 mg PO DAILY PRN UTI Prevention 08/14/24 12/12/24 Rx monohydrate/macrocrystals 100 mg #10 caps capsule fluticasone propionate 50 1 spray intranasal Q12H #54.6 mL 09/06/24 12/12/24 Rx mcg/actuation nasal spray,suspension estradiol 0.025 mg/24 hr weekly 1 patch transdermal WEEKLY #12 ea 09/21/24 12/12/24 Rx transdermal patch semaglutide 1 mg/dose (4 mg/3 mL) 1 mg (0.75 mL) subcut WEEKLY #9 mL 09/21/24 12/12/24 Rx subcutaneous pen injector (Ozempic) cetirizine 10 mg tablet (Zyrtec) 10 mg PO DAILY #90 tabs 10/10/24 12/12/24 Rx zolpidem 10 mg tablet 10 mg PO QHS PRN insomnia #90 tabs 10/10/24 12/12/24 Rx valacyclovir 1 gram tablet 1,000 mg PO BID PRN cold sores 11/27/24 12/12/24 History atorvastatin 20 mg tablet See Rx Instructions .Route 12/04/24 12/12/24 Rx .COMPLEX #90 tabs levothyroxine 50 mcg tablet See Rx Instructions .Route 12/04/24 12/12/24 Rx .COMPLEX #90 tabs Allergies Allergy/AdvReac Type Severity Reaction Status Date / Time hydrocodone (From Vicodin) AdvReac Mild Nausea and Verified 12/12/24 06:18 Vomiting Vital Signs Vital Signs - 24 hr 12/12/24 06:20 Temperature 97.9 F Pulse Rate 76 Respiratory Rate 15 Blood Pressure 128/79 Pulse Oximetry 100 Oxygen Delivery Room Air Exam Narrative: The patient's physical exam is essentially unchanged from prior examination on 11/06/24. Specifically, patient demonstrates normal lung capacity, tidal volume and respiratory rate without wheezes, crackles, rales or rubs. Heart rate and rhythm are regular without murmurs, gallops or rubs. No JVD. Pulses 2+ globally without increasing peripheral edema. AAOx3 with no evidence of confusion, intoxication or altered mental state, NC/AT without acute distress or altered consciousness. Speech, cognition, mood, insight and judgment at baseline and within normal limits. Assessment and Plan Assessment and plan (1) Cervical spondylosis: Code(s): M47.812 - Spondylosis without myelopathy or radiculopathy, cervical region Status: Acute Assessment and Plan: proceed as planned with thermal radiofrequency ablation of the bilateral C2-3, C3, C4 medial branches addressing the bilateral C2-3, C3-4 facet joints under fluoroscopic guidance. (2) Cervicalgia: Code(s): M54.2 - Cervicalgia Status: Acute (3) Chronic pain: Qualifiers: Chronic pain type: other chronic pain Qualified Code(s): G89.29 - Other chronic pain Code(s): G89.29 - Other chronic pain Status: Acute
--- NOTE | 2024-12-12 06:27 | WPDHPUPDATE1 ---
History and Physical Update Update Date/Time: 12/12/24 06:27 History and Physical has been reviewed, including an updated exam of the patient. There are NO changes in the patient's condition. Risks, benefits, and alternatives have been discussed and questions answered. Patient agrees to proceed with procedure.
--- NOTE | 2024-12-12 06:28 | P.OP_ITS ---
Procedure Note - Detailed Date of Procedure 12/12/24 Pre-op Diagnosis Cervical Spondylosis w/o Myelopathy or Radiculop Post-op Diagnosis Same Procedure Performed Thermal Radiofrequency Ablation of the Bilateral Cervical Medial Branches at C2- 3, C3, C4 to ablate the Bilateral C2-3, C3-4 facet joints under Fluoroscopic Guidance (4 levels treated). Surgeon Horace Marhsall MD Non Acoustic Operator None. Anesthesia Local (w/ IV Moderate Sedation) Description of Procedure INFORMED CONSENT: Risks, benefits and alternatives to the procedure were discussed in detail with the patient who expressed explicit understanding and consent to proceed. Patient was informed verbally and in written form regarding the risks associated with the procedure including the low risk of serious infection, bleeding/bruising, allergic reaction, nerve or organ injury, paralysis, procedural site pain or discomfort, worsening pain and/or mobility, failure to treat and/or disfigurement. The patient expressed explicit understanding and consent to proceed. All materials required for the procedure were available prior to procedure start. Site and side was marked prior to procedure and confirmed in the presence of the patient. PROCEDURE IN DETAIL: The patient was brought to the procedural suite and placed in the prone position with head stabilized with a horseshoe pillow and cervical ramp. Patient was made comfortable with use of pillows under the head/chest, hips and ankles. Skin overlying the injection site on the affected side(s) was prepared broadly with 10mL tinted ChloraPrep applicator and draped in a sterile manner. Strict aseptic technique was utilized throughout. The endplates of the vertebral bodies at the site(s) of interest were aligned in the AP view. Ipsilateral oblique angulation was utilized to optimize visualization of the pars interarticularis at each target site. Local anesthesia was established by infiltration with approximately 5 mL of 1% lidocaine via a 1-1/2 inch 27-gauge needle. An 18-gauge 100mm RF needle with curved 10mm active tip was advanced in the AP view until the needle tip contacted the periosteum of the pars interarticularis at the target site, right C2-3 parallel to the course of the targeted peripheral nerve branch. Lateral view was utilized to adjust and confirm the appropriate placement of the needle tip just anterior to the center point of the interarticularis, bisecting the distance between adjacent joint spaces. The appropriately-sized RF cannula was inserted into the RF needle and motor stimulation performed with no subjective or objective evidence of recruited muscle activity with stimulation up to 2.0 volts at a frequency of 2Hz. A 1.5 mL solution of 2.0% PF lidocaine was injected via the appropriately positioned RF cannula after negative aspiration. The grounding electrode was confirmed to be in place with good contact and functioning appropriately. After a 90s pause, lesioning was performed to 90 degrees centigrade for 90s ensuring lack of symptoms in the extremity throughout. Needle was withdrawn approximately 1-2 mm and rotated 180 degrees at each level. Lesioning was then repeated in a similar manner as above. The patient tolerated this well. No parasthesias were elicited. Needle was removed completely intact without difficulty. The same procedure was then repeated for all intended levels/ structures on the ipsilateral side, right C3, C4, with identical methodology, modified to compens ate for new location, with similar results and no evidence of complication. The same procedure was then repeated for all intended levels/ structures on the contralateral side, left C2-3, C3, C4, with identical methodology, modified to compensate for new contralateral location/approach, with similar results and no evidence of complication. Images were saved and documented in the patient's chart. The patient's skin was cleaned and sterile bandages applied. The patient tolerated the procedure well. The patient was transported to the recovery area in stable condition where they were observed for an appropriate amount of time prior to discharge, without evidence of complication. The patient was instructed to avoid excessive activity for the next 48 hours, including overhead work, reaching and device/computer usage. Showers only for 48 hours. They were instructed not to drive or operate heavy machinery for 24 hours. They are to monitor for severe headaches, fevers, chills, night sweats, erythema/swelling at the site or any other signs of infection, bleeding/bruising, bowel or bladder changes as well as new pain, weakness or numbness in the upper or lower extremity. Should they notice these changes, they are instructed to call our office immediately or report directly to the nearest Emergency Department if no answer or if after posted office hours. Complications None Condition Stable Disposition PACU [facility] Billing Surgery - Charge Forward: Surgery Billing
[2024-12-12 06:32] LABS: Glucose Point of Care 114 mg/dl (65-105)
--- NOTE | 2024-12-12 07:07 | WPDANESEPP ---
Anes - Eval Pre Procedure Procedure: Operation Date: 12/12/24 07:30 Proposed Procedures p Thermal Radiofrequency Ablation Bilateral C2-3, C3, C4 Medial Branch under Fluoroscopic Guidance with Contrast Control - Horace Marshall MD Date/Time: 12/12/24 07:07 Surgeon: Rolando de Preop Diagnosis: neck pain Pre Op Diagnosis: Cervical Spondylosis w/o Myelopathy or Radiculop Patient Data Age: 64 Gender: F Height: 1.6 m Weight: 54.5 kg Last Vital Signs Temp 97.9 F 12/12/24 06:20 Pulse 76 12/12/24 06:20 Resp 15 12/12/24 06:20 BP 128/79 12/12/24 06:20 Pulse Ox 100 12/12/24 06:20 O2 Del Method Room Air 12/12/24 06:20 Allergies Allergy/AdvReac Type Severity Reaction Status Date / Time hydrocodone (From Vicodin) AdvReac Mild Nausea and Verified 12/12/24 06:18 Vomiting Home Medications ?Medication ?Instructions ?Recorded ?Confirmed ?Type omega-3 fatty acids 1,000 mg 2,000 mg PO DAILY 08/06/21 12/12/24 History capsule cholecalciferol (vitamin D3) 25 25 mcg PO DAILY 05/02/24 12/12/24 History mcg (1,000 unit) capsule blood-glucose sensor ([employer] G7 #9 ea 07/10/24 10/19/24 Rx Sensor device) nitrofurantoin 100 mg PO DAILY PRN UTI Prevention 08/14/24 12/12/24 Rx monohydrate/macrocrystals 100 mg #10 caps capsule fluticasone propionate 50 1 spray intranasal Q12H #54.6 mL 09/06/24 12/12/24 Rx mcg/actuation nasal spray,suspension estradiol 0.025 mg/24 hr weekly 1 patch transdermal WEEKLY #12 ea 09/21/24 12/12/24 Rx transdermal patch semaglutide 1 mg/dose (4 mg/3 mL) 1 mg (0.75 mL) subcut WEEKLY #9 mL 09/21/24 12/12/24 Rx subcutaneous pen injector (Ozempic) cetirizine 10 mg tablet (Zyrtec) 10 mg PO DAILY #90 tabs 10/10/24 12/12/24 Rx zolpidem 10 mg tablet 10 mg PO QHS PRN insomnia #90 tabs 10/10/24 12/12/24 Rx valacyclovir 1 gram tablet 1,000 mg PO BID PRN cold sores 11/27/24 12/12/24 History atorvastatin 20 mg tablet See Rx Instructions .Route 12/04/24 12/12/24 Rx .COMPLEX #90 tabs levothyroxine 50 mcg tablet See Rx Instructions .Route 12/04/24 12/12/24 Rx .COMPLEX #90 tabs Laboratory Tests 12/12/24 06:27 POC Capillary Glucose 114 H mg/dl (65-105) ECG: LBBB Patient hx anesthesia problems: none Family hx anesthesia problems: none Results Review: All pre-operative results and documents have been reviewed as part of the pre-operative evaluation. [facility] Past Medical History Medical History Acquired hypothyroidism Lumbar radiculitis Mixed hyperlipidemia Insomnia Postcoital UTI Family history of pulmonary fibrosis Diverticulitis large intestine Herniated disc PVC (premature ventricular contraction) history Chicken pox Type 2 diabetes mellitus without complication, without long-term current use of insulin LBBB (left bundle branch block) Hypertension Surgical History Surgical History H/O wrist surgery H/O: hysterectomy 2007 Previous back surgery L5-S1 infusion with cage and screws 2009 Family History Family History Mother Hypertension Cerebrovascular accident Family history of hypothyroidism Family history of diabetes mellitus in first degree relative Myocardial infarction Sibling Family history of hypothyroidism Father Malignant neoplasm of prostate Heart problem Son Multiple sclerosis Graves' disease Social History Social History Social History: Caffeine-none Smoking status: Never smoker Second hand tobacco smoke exposure: No Alcohol intake: current Drinks per week: 4 Alcohol use details: occasional Substance use: never Substance use type: does not use Do You Feel Safe in your Home?: Yes Lack of Transportation: No Lack of Food: Never True Current Housing: I Have Housing Concerned About Future Housing: No Difficulty Paying Gas/Electric Bills: No Difficulty Paying for Meds: No Currently Unemployed: No Education: Associate Degree Difficulty w/ Childcare or Family Care: No Living arrangements: with family Additional living arrangements comments: Spiritual care concerns: No Exam Day of Procedure 12/12/24 07:07 Heart: regular rate and rhythm Lungs: clear to auscultation Airway: Mallampati scale class 1 Neurological: alert and oriented
[2024-12-12] MEDS: LIDOCAINE 1% PF INJ 5 ML VIAL INFILTRATE (08:11)
[2024-12-12] MEDS: BUPivacaine HCL 0.5% 10 ML AMP 5 ML INFILTRATE (08:11)
[2024-12-12] MEDS: LIDOCAINE 2% PF LOCAL INJ 5 ML VIAL 10 ML INFILTRATE (08:12)
[2024-12-12 08:16] VITALS: BP 136/80; PULSE 75; RESP 16; O2SAT 100
--- NOTE | 2024-12-12 08:20 | WPDANESPN ---
Anes - Prog Note Post-Op Date/Time: 12/12/24 08:20 Vital Signs: Last Vital Signs Temp 97.9 F 12/12/24 06:20 Pulse 76 12/12/24 06:20 Resp 15 12/12/24 06:20 BP 128/79 12/12/24 06:20 Pulse Ox 100 12/12/24 06:20 O2 Del Method Room Air 12/12/24 06:20 Pain Score (VAS): NO 12/12/24 06:27 POC Capillary Glucose 114 H Patient Feedback: Patient satisfied with anesthetic care.
[2024-12-12 08:45] VITALS: BP 122/81; PULSE 74; RESP 18; O2SAT 100
[2024-12-12] MEDS: oxyCODONE HCL (*CRX) 5 MG TAB IR PO (09:14)
[2024-12-12 09:15] VITALS: BP 136/81; PULSE 73; RESP 18; O2SAT 99
[2024-12-12] MEDS: ONDANSETRON INJ 4 MG/2 ML VIAL IV PUSH (09:15)
[2024-12-12 09:28] LABS: Glucose Point of Care 131 mg/dl (65-105)
[2024-12-12 09:45] VITALS: BP 147/87; PULSE 78; RESP 18
== END 2024-12-12 09:53 | disposition home or self-care (01) ==
PROVIDERS: PCP Internal Medicine; Visit Provider Anesthesiology Pain Medicine
PROC: (CPT 64633; principal; 2024-12-12 07:30)
DX: M47.812 Spondylosis without myelopathy or radiculopathy, cervical region (principal); G89.29 Other chronic pain
CPT/HCPCS: 64633; 64634 ×6; 99199

== ENCOUNTER 2025-04-26 08:27 | Outpatient (CLI) | payer OTHER, SELFPAY ==
--- NOTE | ~2025-04-26 | MR_ITS ---
EXAMINATION: MR cervical spine wo con DATE: 04/26/2025 08:55 INDICATION: Radiculopathy, cervical region. TECHNIQUE: Magnetic resonance imaging (MRI) of the cervical spine was performed without intravenous contrast. COMPARISON: Cervical spine MRI 11/25/2022 FINDINGS: There is 7 degrees levocurvature of cervicothoracic spine. Vertebral body heights are normal. There is 2 mm retrolisthesis of C5 on C6. There is severely decreased disc height at C5-C6 and C6-C7. The spinal cord signal intensity is normal. The following disc levels are specifically discussed: C2-C3: The disc does not extend beyond the endplate margin. There is no uncovertebral joint osteoarthritis. There is moderate right facet joint osteoarthritis. There is ankylosis of left facet joint with moderate hypertrophy. There is mild left neural foraminal stenosis. There is no central canal stenosis. C3-C4: The disc does not extend beyond the endplate margin. There is mild right and moderate left uncovertebral joint osteoarthritis. There is severe bilateral facet joint osteoarthritis. There is mild right and moderate left neural foraminal stenosis. There is no central canal stenosis. C4-C5: The disc is bulging. There is mild bilateral uncovertebral joint osteoarthritis. There is severe bilateral facet joint osteoarthritis. There is mild left neural foraminal stenosis. There is mild central canal stenosis. C5-C6: The disc is bulging. There is severe bilateral uncovertebral joint osteoarthritis. There is mild right and moderate left facet joint osteoarthritis. There is moderate right and mild left neural foraminal stenosis. There is mild central canal stenosis. C6-C7: The disc is bulging. There is severe bilateral uncovertebral joint osteoarthritis. There is mild bilateral facet joint osteoarthritis. There is mild bilateral neural foraminal stenosis. There is mild central canal stenosis. C7-T1: The disc does not extend beyond the endplate margin. There is no uncovertebral joint osteoarthritis. There is severe bilateral facet joint osteoarthritis. There is mild bilateral neural foraminal stenosis. There is no central canal stenosis. IMPRESSION: 1. Severe cervical spondylosis, stable from 11/25/2022. Reviewed, dictated and finalized at location E.
== END 2025-04-26 08:28 | disposition home or self-care (01) ==
PROVIDERS: PCP Nurse Practitioner; Visit Provider Nurse Practitioner Adult Health
DX: M43.02 Spondylolysis, cervical region (principal)
CPT/HCPCS: 72141

== ENCOUNTER 2025-06-22 09:31 | Outpatient (CLI) | payer OTHER, SELFPAY ==
--- NOTE | ~2025-06-22 | XR_ITS ---
XR cervical spine 4-5V 06/22/2025 09:50 Indication: Spondylosis. Procedure: 6 views cervical spine Comparison: Comparison to multiple prior studies sequentially, with oldest reviewed study dated 11/19/2022. Findings: There is disc narrowing at C5-6 and C6-7. There are prominent bridging osteophytes at C4-5, C5-6 and C6-7. No alteration of alignment with flexion/extension. No prevertebral soft tissue swelling. There is advanced multilevel facet hypertrophy. Lung apices are normal. Odontoid process is tash l. Impression: 1: Severe cervical spondylosis. Reviewed, dictated and finalized at location O. [employer] Impression: 1: Severe cervical spondylosis.
--- NOTE | ~2025-06-22 | CT_ITS ---
EXAMINATION: CT cervical spine wo con DATE: 06/22/2025 09:42 INDICATION: Spondylosis without myelopathy or radiculopathy. TECHNIQUE: Computed tomography (CT) of the cervical spine was performed without intravenous contrast. Automated exposure control and iterative reconstruction technique were employed. The dose-length product was 142.50 mGy-cm. COMPARISON: CT cervical spine 11/22/2023 FINDINGS: There is mild scarring at the lung apices. There is 2 mm retrolisthesis of C6 on C7. Vertebral body heights are normal. There is mildly decreased disc height at C3-C4 and severely decreased disc height at C5-C6 and C6-C7. The following disc levels are specifically discussed: C2-C3: There is no uncovertebral joint osteoarthritis. There is severe right facet joint osteoarthritis. There is ankylosis of left facet joint with moderate hypertrophy. There is mild left neural foraminal stenosis. There is no central canal stenosis. C3-C4: There is mild left uncovertebral joint osteoarthritis. There is severe bilateral facet joint osteoarthritis. There is mild bilateral neural foraminal stenosis. There is mild central canal stenosis. C4-C5: There is no uncovertebral joint osteoarthritis. There is moderate right and severe left facet joint osteoarthritis. There is no neural foraminal stenosis. There is no central canal stenosis. C5-C6: There is severe right and mild left uncovertebral joint osteoarthritis. There is moderate bilateral facet joint osteoarthritis. There is mild right neural foraminal stenosis. There is mild central canal stenosis. C6-C7: There is severe bilateral uncovertebral joint osteoarthritis. There is severe bilateral facet joint osteoarthritis. There is mild bilateral neural foraminal stenosis. There is mild central canal stenosis. C7-T1: There is no uncovertebral joint osteoarthritis. There is severe bilateral facet joint osteoarthritis. There is mild bilateral neural foraminal stenosis. There is no central canal stenosis. IMPRESSION: 1. Severe cervical spondylosis, stable from 11/22/2023. Reviewed, dictated and finalized at location E. [employer]
== END 2025-06-22 09:32 | disposition home or self-care (01) ==
LOC: MICIMG 09:32
PROVIDERS: PCP Internal Medicine; Visit Provider Neurological Surgery
DX: M47.812 Spondylosis without myelopathy or radiculopathy, cervical region (principal)
CPT/HCPCS: 72050; 72125